=== PATIENT | female | born 1995 | race Caucasian/White ===

== ENCOUNTER 2020-04-19 07:30 | Outpatient (REF) | payer OTHER, SELFPAY ==
[2020-04-19 08:21] LABS: COVID-19 Test Negative (Negative); IDNOW Serial# 55D5AD1C
== END 2020-04-19 07:31 | disposition home or self-care (01) ==
LOC: HO.EMPCOV 07:30
PROVIDERS: Visit Provider Internal Medicine
DX: Z20.828 Contact with and (suspected) exposure to other viral communicable diseases (principal)
CPT/HCPCS: 87635; C9803

== ENCOUNTER 2020-09-14 13:55 | Emergency (ER) | payer OTHER, SELFPAY ==
--- NOTE | ~2020-09-14 | CT_ITS ---
EXAMINATION: CT ABDOMEN AND PELVIS WITH CONTRAST CLINICAL INFORMATION: Right lower quadrant pain x3 weeks COMPARISON: None TECHNIQUE: Multidetector volumetric images were obtained from the superior aspect of the liver through the pubic symphysis following administration 85 mL of Omnipaque 350 intravenous contrast. Sagittal and coronal reformatted images were obtained on the technologist's workstation. Oral contrast: No This CT examination was performed using dose optimization techniques as appropriate, variously including the following: *Automated exposure control *Adjustment of mA and/or kV according to patient size (this includes techniques or standardized protocols for targeted exams where dose is matched to indication/reason for exam; i.e. extremities or head) *Use of iterative reconstruction technique DLP: 341 mGy-cm FINDINGS: LUNG BASES: The visualized lung bases are unremarkable. LIVER, GALLBLADDER, AND BILIARY TREE: The liver is mildly enlarged measuring about 19 cm in greatest cephalocaudad dimension and demonstrates some decreased attenuation suggesting hepatic steatosis. No focal hepatic lesion or biliary ductal dilatation is present. The gallbladder is unremarkable with no evidence of radiopaque gallstones, gallbladder wall thickening, or obvious pericholecystic inflammatory changes. PANCREAS: Unremarkable. SPLEEN: Unremarkable. ADRENAL GLANDS: Unremarkable. KIDNEYS AND URETERS: The kidneys are normal in size, shape, and attenuation. No hydronephrosis, hydroureter, or calculi seen. No perinephric stranding. BLADDER: Unremarkable. GASTROINTESTINAL TRACT: A small hiatal hernia is present. The small and large bowel are unremarkable. There is a tiny punctate nonobstructing appendicolith present in the proximal appendix but distally the appendix contains air and there is no evidence of appendicitis (see dunlap images).. ABDOMINAL WALL: No significant hernia is appreciated. LYMPH NODES: Multiple small nodes present in the periceliac region VASCULAR: Unremarkable. PELVIC VISCERA: An anteverted uterus is present. An abnormal adnexal mass is not seen. No free intraperitoneal fluid is present. Bilateral ovarian cysts are present. OSSEOUS STRUCTURES: Unremarkable. CT/CT abdomen pelvis w con IMPRESSION: There is an appendicolith in the proximal appendix but the appendix distal to this appears normal containing air and no inflammatory changes. Perhaps this could produce intermittent obstruction? Incidental note made of a small hiatal hernia, small bilateral ovarian cysts and a mildly enlarged fatty liver.
[2020-09-14 14:24] VITALS: BP 117/84; PULSE 90; RESP 16; TEMP 37.2; O2SAT 98; BMI 19.1
[2020-09-14 17:17] LABS: MANUAL DIFF FLAG NO
[2020-09-14 17:20] LABS: Basophils Percent Auto 0.2 % (0-2); Eosinophils Absolute Auto 0.1 X10*3/uL (0.0-0.4); Hematocrit 36.8 % (37-47); Imm Gran Abs Auto 0.01 X10*3/uL (0.00-0.03); Imm Gran Pct Auto 0.2 % (0.0-0.4); Lymphocytes Percent Auto 39.4 % (20-40); Mean Corpuscular HGB Conc 32.6 g/dl (31.0-35.0); Mean Corpuscular Hemoglobin 28.3 pg (27.0-33.0); Mean Corpuscular Volume 86.8 fL (80-98); Mean Platelet Volume 9.8 fL (9.4-12.3); Monocytes Absolute Auto 0.4 X10*3/uL (0.1-1.2); Monocytes Percent Auto 7.9 % (2-11); Neutrophils Absolute Auto 2.5 X10*3/uL (2.0-8.3); Neutrophils Percent Auto 51.3 % (45-73); Platelet Count 231 X10*3/uL (160-400); Red Blood Count 4.24 X10*6/uL (4.20-5.50); Red Cell Distribution Width 12.2 % (11.0-16.0)
[2020-09-14 17:45] LABS: Anion Gap 12 (12-20); Blood Urea Nitrogen 12 mg/dL (9-16); Calcium 9.2 mg/dL (8.4-10.2); Carbon Dioxide 24 mmol/L (22-29); Chloride 107 mmol/L (96-108); Creatinine Clr Calc Pharmacy 102.3; Estimated Glomerular Filt Rate > 60; Glucose Random 81 mg/dL (60-115); Potassium 4.3 mmol/L (3.3-5.1); Sodium 139 mmol/L (135-145)
[2020-09-14 20:57] VITALS: BP 110/62; PULSE 78; RESP 14; O2SAT 99
--- NOTE | 2020-09-14 21:10 | ED_ITS ---
HPI - Abdominal Pain General Chief Complaint: Abdominal Pain Stated Complaint: ABD PAIN Time Seen by Provider: 09/14/20 20:03 Source: patient Mode of arrival: ambulatory Limitations: no limitations History of Present Illness HPI narrative: Patient comes emergency room complaining of abdominal pain. Patient states it has been present for 2-3 weeks. Patient states it is epigastric, at times right lower quadrant. Patient states that she went to a walk-in clinic today, when they did the abdominal exam she started having worsening right lower quadrant pain and she was sent to the emergency room. Patient also reports that for the last 3 weeks she has had metallic taste in her mouth, states that her stool smells like a GI bleed Related Data Home Medications Medication Instructions Recorded Confirmed dextroamphetamine-amphetamine ER 1 cap PO [facility] 09/14/20 15 mg 24hr capsule,extend release escitalopram oxalate 10 mg tablet 10 mg PO [facility] 09/14/20 Allergies Allergy/AdvReac Type Severity Reaction Status Date / Time No Known Allergies Allergy Verified 09/14/20 12:41 Review of Systems Review of Systems Constitutional : No Weight loss, No Fever, No Chills, No Night Sweats, No Fatigue, No Malaise ENT/Mouth : No Hearing loss, No Ear Pain, No Nasal Congestion, No Sinus Pain, No Hoarseness, No sore throat, No Rhinorrhea, No Swallowing Difficulty, complaining of metallic taste Eyes: No Eye Pain, No Swelling, No Redness, No Foreign Body, No Discharge, No Vision Changes Cardiovascular : No Chest Pain, No SOB, No Dyspnea on Exertion, No Orthopnea, No Edema, No Palpitations Respiratory : No Cough, No Sputum, No Wheezing, No Smoke Exposure, No Dyspnea Gastrointestinal : No Nausea, No Vomiting, No Diarrhea, No Constipation, compl aining of periumbilical and right lower quadrant pain, No Hematochezia, No Melena, complaining of bowel movements Milling like GI bleed Genitourinary : no irregular bleeding, No Dysuria, No Urinary Frequency, No Hematuria, No Urinary Incontinence, No Urgency, No Flank Pain, No Urinary Flow Changes, No Hesitancy Musculoskeletal : No joint pain, No Myalgias, No Joint Swelling Skin : No Skin Lesions, No rash Neuro : No Weakness, No Numbness, No Paresthesias, No Loss of Consciousness, No Dizziness, No Headache Psych : No Anxiety/Panic, No Depression, No SI/HI/AH/VH, No Social Issues, Heme/Lymph: No Bruising, No Bleeding,No Lymphadenopathy Endocrine : No Polyuria, No Polydipsia, No Temperature Intolerance Physical Exam Vital Signs: Vital Signs: Last Vital Signs Temp 99 F 09/14/20 14:24 Pulse 78 09/14/20 20:57 Resp 14 09/14/20 20:57 BP 110/62 09/14/20 20:57 Pulse Ox 99 09/14/20 20:57 Body Mass Index 19.1 Appearance: Alert. Oriented X3. No acute distress. Eyes: Pupils equal, round and reactive to light. ENT: Pharynx normal. Neck: Normal inspection. Neck supple. No lymph nodes noted. No crepitus CVS: Normal heart rate and rhythm. Pulses normal. Normal S1 and S2 Respiratory: No respiratory distress. Breath sounds normal. No Wheezing. No rales Abdomen: Soft , mild to moderate tenderness to palpation on the right lower quadrant and periumbilical area, No rigidity. No distention. ROSALBA negative Skin: Skin warm and dry. Normal skin color. Normal skin turgor. Extremities: No lower extremity edema. No lower extremity edema. No Lacerations. No Rash Neuro: Oriented X 3. No motor deficit. No sensory deficit. Moving all extermities. No slurred speech. Course Course Course Narrative: Patient has minimal abdominal pain, only hurts when pressed over the periumbilical and right lower quadrant. Patient declined multiple times pain medication. I discussed the labs and CT scan with Dr. Jimenez, at this time the CT is benign looking, unlikely that the patient will develop appendicitis. However, I discussed with the patient that her symptoms may be an early sign of appendicitis and if she has any worsening or new symptoms, she needs to return to the emergency room. Patient agrees with plan MDM - Abdominal Pain Lab Data Result diagrams: 09/14/20 23:17 09/14/20 23:17 Labs: Lab Results 09/14/20 09/14/20 09/14/20 Range/Units 16:47 16:48 22:14 WBC 5.0 (4.8-10.8) X10*3/uL RBC 4.24 (4.20-5.50) X10*6/uL Hgb 12.0 (12.0-16.0) g/dl Hct 36.8 L (37-47) % MCV 86.8 (80-98) fL MCH 28.3 (27.0-33.0) pg MCHC 32.6 (31.0-35.0) g/dl RDW 12.2 (11.0-16.0) % Plt Count 231 (160-400) X10*3/uL MPV 9.8 (9.4-12.3) fL Immature Gran % (Auto) 0.2 (0.0-0.4) % Neut % (Auto) 51.3 (45-73) % Lymph % (Auto) 39.4 (20-40) % Gosper % (Auto) 7.9 (2-11) % Eos % (Auto) 1.0 (0-4) % Baso % (Auto) 0.2 (0-2) % Lymph # (Auto) 2.0 (1.2-4.9) X10*3/uL Gosper # (Auto) 0.4 (0.1-1.2) X10*3/uL Eos # (Auto) 0.1 (0.0-0.4) X10*3/uL Baso # (Auto) 0.0 (0.0-0.2) X10*3/uL Abs Immat Gran (auto) 0.01 (0.00-0.03) X10*3/uL Absolute Neuts (auto) 2.5 (2.0-8.3) X10*3/uL Absolute Nucleated RBC 0.000 (0.0-0.012) X10*3/uL Nucleated RBC % (auto) 0.0 (0.0-0.2) /100WBC PT (10.8-13.0) SEC INR (0.9-1.1) APTT (24.1-38.0) SEC Sodium 139 (135-145) mmol/L Potassium 4.3 (3.3-5.1) mmol/L Chloride 107 (96-108) mmol/L Carbon Dioxide 24 (22-29) mmol/L Anion Gap 12 (12-20) BUN 12 (9-16) mg/dL Creatinine 0.68 (0.5-1.4) mg/dL Estim Creat Clear Calc 102.3 Estimated GFR > 60 Random Glucose 81 (60-115) mg/dL Calcium 9.2 (8.4-10.2) mg/dL Total Bilirubin (0.0-1.0) mg/dL Direct Bilirubin (0.0-0.5) mg/dL AST (5-31) U/L ALT (0-31) U/L Alkaline Phosphatase (39-117) U/L Total Protein (6.5-8.0) g/dL Albumin (3.5-5.0) g/dL Lipase (8-78) U/L Urine Color Urine Appearance Urine pH (5.0-8.0) Ur Specific Billings (1.005-1.025) Urine Protein (NEG-TRACE) MG/DL Urine Glucose (UA) (NEG) MG/DL Urine Ketones (NEG) MG/DL Urine Blood (NEG) Urine Nitrite (NEG) Ur Leukocyte Esterase (NEG) Urine Test (NEGATIVE) Stool Occult Blood (NEGATIVE) Coronavirus (PCR) NEGATIVE (Negative) Influenza Type A (PCR) NEGATIVE (Negative) Influenza Type B (PCR) NEGATIVE (Negative) RSV RNA Qual (PCR) NEGATIVE (Negative) 09/14/20 09/14/20 09/14/20 Range/Units 22:14 22:14 23:17 WBC 5.0 (4.8-10.8) X10*3/uL RBC 4.38 (4.20-5.50) X10*6/uL Hgb 12.4 (12.0-16.0) g/dl Hct 37.6 (37-47) % MCV 85.8 (80-98) fL MCH 28.3 (27.0-33.0) pg MCHC 33.0 (31.0-35.0) g/dl RDW 12.0 (11.0-16.0) % Plt Count 212 (160-400) X10*3/uL MPV 9.4 (9.4-12.3) fL Immature Gran % (Auto) 0.2 (0.0-0.4) % Neut % (Auto) 43.8 L (45-73) % Lymph % (Auto) 45.1 H (20-40) % Gosper % (Auto) 9.1 (2-11) % Eos % (Auto) 1.6 (0-4) % Baso % (Auto) 0.2 (0-2) % Lymph # (Auto) 2.2 (1.2-4.9) X10*3/uL Gosper # (Auto) 0.5 (0.1-1.2) X10*3/uL Eos # (Auto) 0.1 (0.0-0.4) X10*3/uL Baso # (Auto) 0.0 (0.0-0.2) X10*3/uL Abs Immat Gran (auto) 0.01 (0.00-0.03) X10*3/uL Absolute Neuts (auto) 2.2 (2.0-8.3) X10*3/uL Absolute Nucleated RBC 0.000 (0.0-0.012) X10*3/uL Nucleated RBC % (auto) 0.0 (0.0-0.2) /100WBC PT (10.8-13.0) SEC INR (0.9-1.1) APTT (24.1-38.0) SEC Sodium (135-145) mmol/L Potassium (3.3-5.1) mmol/L Chloride (96-108) mmol/L Carbon Dioxide (22-29) mmol/L Anion Gap (12-20) BUN (9-16) mg/dL Creatinine (0.5-1.4) mg/dL Estim Creat Clear Calc Estimated GFR Random Glucose (60-115) mg/dL Calcium (8.4-10.2) mg/dL Total Bilirubin (0.0-1.0) mg/dL Direct Bilirubin (0.0-0.5) mg/dL AST (5-31) U/L ALT (0-31) U/L Alkaline Phosphatase (39-117) U/L Total Protein (6.5-8.0) g/dL Albumin (3.5-5.0) g/dL Lipase (8-78) U/L Urine Color YELLOW Urine Appearance CLEAR Urine pH 5.5 (5.0-8.0) Ur Specific Billings 1.020 (1.005-1.025) Urine Protein NEG (NEG-TRACE) MG/DL Urine Glucose (UA) NEG (NEG) MG/DL Urine Ketones NEG (NEG) MG/DL Urine Blood NEG (NEG) Urine Nitrite NEG (NEG) Ur Leukocyte Esterase NEG (NEG) Urine Test NEGATIVE (NEGATIVE) Stool Occult Blood (NEGATIVE) Coronavirus (PCR) (Negative) Influenza Type A (PCR) (Negative) Influenza Type B (PCR) (Negative) RSV RNA Qual (PCR) (Negative) 09/14/20 09/14/20 09/14/20 Range/Units 23:17 23:17 23:17 WBC (4.8-10.8) X10*3/uL RBC (4.20-5.50) X10*6/uL Hgb (12.0-16.0) g/dl Hct (37-47) % MCV (80-98) fL MCH (27.0-33.0) pg MCHC (31.0-35.0) g/dl RDW (11.0-16.0) % Plt Count (160-400) X10*3/uL MPV (9.4-12.3) fL Immature Gran % (Auto) (0.0-0.4) % Neut % (Auto) (45-73) % Lymph % (Auto) (20-40) % Gosper % (Auto) (2-11) % Eos % (Auto) (0-4) % Baso % (Auto) (0-2) % Lymph # (Auto) (1.2-4.9) X10*3/uL Gosper # (Auto) (0.1-1.2) X10*3/uL Eos # (Auto) (0.0-0.4) X10*3/uL Baso # (Auto) (0.0-0.2) X10*3/uL Abs Immat Gran (auto) (0.00-0.03) X10*3/uL Absolute Neuts (auto) (2.0-8.3) X10*3/uL Absolute Nucleated RBC (0.0-0.012) X10*3/uL Nucleated RBC % (auto) (0.0-0.2) /100WBC PT 13.2 H (10.8-13.0) SEC INR 1.1 (0.9-1.1) APTT 31.9 (24.1-38.0) SEC Sodium 140 (135-145) mmol/L Potassium 3.9 (3.3-5.1) mmol/L Chloride 106 (96-108) mmol/L Carbon Dioxide 25 (22-29) mmol/L Anion Gap 13 (12-20) BUN 10 (9-16) mg/dL Creatinine 0.67 (0.5-1.4) mg/dL Estim Creat Clear Calc 103.8 Estimated GFR > 60 Random Glucose 80 (60-115) mg/dL Calcium 9.2 9.5 (8.4-10.2) mg/dL Total Bilirubin 0.6 (0.0-1.0) mg/dL Direct Bilirubin 0.2 (0.0-0.5) mg/dL AST 13 (5-31) U/L ALT 11 (0-31) U/L Alkaline Phosphatase 45 (39-117) U/L Total Protein 7.2 (6.5-8.0) g/dL Albumin 4.7 (3.5-5.0) g/dL Lipase 43 (8-78) U/L Urine Color Urine Appearance Urine pH (5.0-8.0) Ur Specific Billings (1.005-1.025) Urine Protein (NEG-TRACE) MG/DL Urine Glucose (UA) (NEG) MG/DL Urine Ketones (NEG) MG/DL Urine Blood (NEG) Urine Nitrite (NEG) Ur Leukocyte Esterase (NEG) Urine Test (NEGATIVE) Stool Occult Blood (NEGATIVE) Coronavirus (PCR) (Negative) Influenza Type A (PCR) (Negative) Influenza Type B (PCR) (Negative) RSV RNA Qual (PCR) (Negative) 09/15/20 Range/Units 02:04 WBC (4.8-10.8) X10*3/uL RBC (4.20-5.50) X10*6/uL Hgb (12.0-16.0) g/dl Hct (37-47) % MCV (80-98) fL MCH (27.0-33.0) pg MCHC (31.0-35.0) g/dl RDW (11.0-16.0) % Plt Count (160-400) X10*3/uL MPV (9.4-12.3) fL Immature Gran % (Auto) (0.0-0.4) % Neut % (Auto) (45-73) % Lymph % (Auto) (20-40) % Gosper % (Auto) (2-11) % Eos % (Auto) (0-4) % Baso % (Auto) (0-2) % Lymph # (Auto) (1.2-4.9) X10*3/uL Gosper # (Auto) (0.1-1.2) X10*3/uL Eos # (Auto) (0.0-0.4) X10*3/uL Baso # (Auto) (0.0-0.2) X10*3/uL Abs Immat Gran (auto) (0.00-0.03) X10*3/uL Absolute Neuts (auto) (2.0-8.3) X10*3/uL Absolute Nucleated RBC (0.0-0.012) X10*3/uL Nucleated RBC % (auto) (0.0-0.2) /100WBC PT (10.8-13.0) SEC INR (0.9-1.1) APTT (24.1-38.0) SEC Sodium (135-145) mmol/L Potassium (3.3-5.1) mmol/L Chloride (96-108) mmol/L Carbon Dioxide (22-29) mmol/L Anion Gap (12-20) BUN (9-16) mg/dL Creatinine (0.5-1.4) mg/dL Estim Creat Clear Calc Estimated GFR Random Glucose (60-115) mg/dL Calcium (8.4-10.2) mg/dL Total Bilirubin (0.0-1.0) mg/dL Direct Bilirubin (0.0-0.5) mg/dL AST (5-31) U/L ALT (0-31) U/L Alkaline Phosphatase (39-117) U/L Total Protein (6.5-8.0) g/dL Albumin (3.5-5.0) g/dL Lipase (8-78) U/L Urine Color Urine Appearance Urine pH (5.0-8.0) Ur Specific Billings (1.005-1.025) Urine Protein (NEG-TRACE) MG/DL Urine Glucose (UA) (NEG) MG/DL Urine Ketones (NEG) MG/DL Urine Blood (NEG) Urine Nitrite (NEG) Ur Leukocyte Esterase (NEG) Urine Test (NEGATIVE) Stool Occult Blood NEGATIVE (NEGATIVE) Coronavirus (PCR) (Negative) Influenza Type A (PCR) (Negative) Influenza Type B (PCR) (Negative) RSV RNA Qual (PCR) (Negative) Imaging Data CT scan - abdomen: Radiologist's impression: LUNG BASES: The visualized lung bases are unremarkable. LIVER, GALLBLADDER, AND BILIARY TREE: The liver is mildly enlarged measuring about 19 cm in greatest cephalocaudad dimension and demonstrates some decreased attenuation suggesting hepatic steatosis. No focal hepatic lesion or biliary ductal dilatation is present. The gallbladder is unremarkable with no evidence of radiopaque gallstones, gallbladder wall thickening, or obvious pericholecystic inflammatory changes. PANCREAS: Unremarkable. SPLEEN: Unremarkable. ADRENAL GLANDS: Unremarkable. KIDNEYS AND URETERS: The kidneys are normal in size, shape, and attenuation. No hydronephrosis, hydroureter, or calculi seen. No perinephric stranding. BLADDER: Unremarkable. GASTROINTESTINAL TRACT: A small hiatal hernia is present. The small and large bowel are unremarkable. There is a tiny punctate nonobstructing appendicolith present in the proximal appendix but distally the appendix contains air and there is no evidence of appendicitis (see dunlap images).. ABDOMINAL WALL: No significant hernia is appreciated. LYMPH NODES: Multiple small nodes present in the periceliac region VASCULAR: Unremarkable. PELVIC VISCERA: An anteverted uterus is present. An abnormal adnexal mass is not seen. No free intraperitoneal fluid is present. Bilateral ovarian cysts are present. OSSEOUS STRUCTURES: Unremarkable. CT/CT abdomen pelvis w con IMPRESSION: There is an appendicolith in the proximal appendix but the appendix distal to this appears normal containing air and no inflammatory changes. Perhaps this could produce intermittent obstruction? Incidental note made of a small hiatal hernia, small bilateral ovarian cysts and a mildly enlarged fatty liver. Discharge Plan Discharge Clinical Impression: Abdominal pain Qualifiers: Abdominal location: right lower quadrant Qualified Code(s): R10.31 - Right lower quadrant pain Patient Disposition: Home, Self-Care Instructions: Abdominal Pain (ED) Additional Instructions: If you have any ongoing or worsening abdominal pain or if you have any new symptoms, please return to the emergency room. At this time, acute appendicitis has not been ruled out, your symptoms could be indicative of early appendicitis. Please follow-up with your primary care physician tomorrow. If you have any worsening or new symptoms, please return to the emergency room or call 911 Prescriptions: No Action dextroamphetamine-amphetamine 15 mg capsule,extended release 24hr 1 cap PO QAM RF: 0 escitalopram oxalate 10 mg tablet 10 mg PO QAM RF: 0 PMFSH Past Medical History Medical History Asthma Social History Social History Advance Directives: No
[2020-09-14 22:23] LABS: Glucose Urine UA NEG (NEG); Leukocyte Esterase Urine NEG (NEG); Nitrite Urine NEG (NEG); PH 5.5 (5.0-8.0); Urine Blood NEG (NEG); Urine Ketones NEG (NEG); Urine Protein NEG (NEG-TRACE)
[2020-09-14 22:25] LABS: Appearance Urine CLEAR; Color Urine YELLOW; UPreg QC Valid YES; Urine Pregnancy NEGATIVE (NEGATIVE)
[2020-09-14 23:18] LABS: MANUAL DIFF FLAG NO
[2020-09-14 23:19] LABS: Basophils Percent Auto 0.2 % (0-2); Eosinophils Absolute Auto 0.1 X10*3/uL (0.0-0.4); Eosinophils Percent Auto 1.6 % (0-4); Hematocrit 37.6 % (37-47); Hemoglobin 12.4 g/dl (12.0-16.0); Imm Gran Abs Auto 0.01 X10*3/uL (0.00-0.03); Imm Gran Pct Auto 0.2 % (0.0-0.4); Lymphocytes Absolute Auto 2.2 X10*3/uL (1.2-4.9); Lymphocytes Percent Auto 45.1 % (20-40); Mean Corpuscular Hemoglobin 28.3 pg (27.0-33.0); Mean Corpuscular Volume 85.8 fL (80-98); Mean Platelet Volume 9.4 fL (9.4-12.3); Monocytes Absolute Auto 0.5 X10*3/uL (0.1-1.2); Monocytes Percent Auto 9.1 % (2-11); Neutrophils Absolute Auto 2.2 X10*3/uL (2.0-8.3); Neutrophils Percent Auto 43.8 % (45-73); Platelet Count 212 X10*3/uL (160-400); Red Blood Count 4.38 X10*6/uL (4.20-5.50)
--- NOTE | 2020-09-14 23:24 | PC.NURSE ---
pt covid rsv swab was collected and lables printed but the barcode would not appear to scan. this rn name date and time placed on the lable and lab called and verified it was scanned at [id number]
[2020-09-14 23:30] LABS: INTERNATIONAL NORM RATIO 1.1 (0.9-1.1); Prothrombin Time 13.2 SEC (10.8-13.0)
[2020-09-14 23:32] LABS: Partial Thromboplastin Time 31.9 SEC (24.1-38.0)
[2020-09-14 23:46] LABS: Calcium 9.5 mg/dL (8.4-10.2)
[2020-09-14 23:53] LABS: Alanine Aminotransferase 11 U/L (0-31); Albumin Level 4.7 g/dL (3.5-5.0); Alkaline Phosphatase 45 U/L (39-117); Anion Gap 13 (12-20); Aspartate Amino Transferase 13 U/L (5-31); Bilirubin Direct 0.2 mg/dL (0.0-0.5); Bilirubin Total 0.6 mg/dL (0.0-1.0); Blood Urea Nitrogen 10 mg/dL (9-16); Calcium 9.2 mg/dL (8.4-10.2); Carbon Dioxide 25 mmol/L (22-29); Chloride 106 mmol/L (96-108); Creatinine Clr Calc Pharmacy 103.8; Estimated Glomerular Filt Rate > 60; Glucose Random 80 mg/dL (60-115); Lipase 43 U/L (8-78); Potassium 3.9 mmol/L (3.3-5.1); Sodium 140 mmol/L (135-145); Total Protein 7.2 g/dL (6.5-8.0)
[2020-09-14] MEDS: iohexoL 350 MG/ML 100 ML INFUS..BTL 85 ML IV (23:55)
[2020-09-15 00:08] LABS: Influenza A PCR NEGATIVE (Negative); Influenza B PCR NEGATIVE (Negative); Resp Syncy Virus RNA Qual PCR NEGATIVE (Negative); SARS COV2 PCR INHOUSE NEGATIVE (Negative)
[2020-09-15 02:11] LABS: OBS Int Ctl Valid YES; OBS1 NEGATIVE (NEGATIVE)
[2020-09-15] MEDS: Acetaminophen 325 MG TABLET 650 MG PO (02:30)
[2020-09-15 02:32] VITALS: BP 112/70; PULSE 72; RESP 16; O2SAT 99
== END 2020-09-15 02:53 | disposition home or self-care (01) ==
PROVIDERS: Emergency Provider Emergency Medicine
DX: R10.31 Right lower quadrant pain (principal); Z20.822 Contact with and (suspected) exposure to COVID-19; R93.5 Abnormal findings on diagnostic imaging of other abdominal regions, including retroperitoneum; K44.9 Diaphragmatic hernia without obstruction or gangrene; N83.202 Unspecified ovarian cyst, left side; N83.201 Unspecified ovarian cyst, right side; K76.0 Fatty (change of) liver, not elsewhere classified
CPT/HCPCS: 0241U; 36415; 74177; 80048; 80076; 81003; 81025; 82272; 82310; 83690; 85025; 85610; 85730; 99284; Q9967

== ENCOUNTER 2020-09-17 01:28 | Emergency (ER) | payer OTHER, SELFPAY ==
--- NOTE | ~2020-09-17 | US_ITS ---
EXAMINATIONS: ULTRASOUND PELVIC, COMPLETE AND DOPPLER INTERROGATION CLINICAL INFORMATION: Pain. COMPARISON: Same day abdominal and pelvic CT. TECHNIQUE: Transabdominal and transvaginal imaging was performed. Transvaginal imaging was performed for further evaluation of the endometrium and adnexa. Doppler interrogation spectral analysis was performed. FINDINGS: The uterus is of normal size and echogenicity measuring 5.8 x 2.5 x 4.1 cm. A regular homogeneous endometrium is identified measuring 0.6 cm. Both ovaries are of normal size and echogenicity. Numerous ovarian follicles are present bilaterally. The right measures 3.3 x 2.5 x 2.4 cm for a volume of 10.4 cc. The left measures 3.2 x 2.0 x 2.4 cm for a volume of 8.0 cc. Normal arterial and venous blood flow is present bilaterally. There is trace likely physiologic pelvic free fluid. US/US pelvic ovarian doppler IMPRESSION: No evidence for ovarian torsion. Unremarkable pelvic ultrasound.
--- NOTE | ~2020-09-17 | US_ITS ---
EXAMINATIONS: ULTRASOUND PELVIC, COMPLETE AND DOPPLER INTERROGATION CLINICAL INFORMATION: Pain. COMPARISON: Same day abdominal and pelvic CT. TECHNIQUE: Transabdominal and transvaginal imaging was performed. Transvaginal imaging was performed for further evaluation of the endometrium and adnexa. Doppler interrogation spectral analysis was performed. FINDINGS: The uterus is of normal size and echogenicity measuring 5.8 x 2.5 x 4.1 cm. A regular homogeneous endometrium is identified measuring 0.6 cm. Both ovaries are of normal size and echogenicity. Numerous ovarian follicles are present bilaterally. The right measures 3.3 x 2.5 x 2.4 cm for a volume of 10.4 cc. The left measures 3.2 x 2.0 x 2.4 cm for a volume of 8.0 cc. Normal arterial and venous blood flow is present bilaterally. There is trace likely physiologic pelvic free fluid. US/US pelvic and transvaginal IMPRESSION: No evidence for ovarian torsion. Unremarkable pelvic ultrasound.
--- NOTE | ~2020-09-17 | CT_ITS ---
EXAMINATION: CT ABDOMEN AND PELVIS WITH CONTRAST CLINICAL INFORMATION: Right lower quadrant pain. COMPARISON: 09/14/2020. TECHNIQUE: Contiguous axial thin section helical images of the abdomen and pelvis were performed following the administration of 85 mL of intravenous Omnipaque 3-50. The data set was reformatted in the coronal and sagittal planes and reviewed on an independent workstation. DLP: 308 mGy-cm. FINDINGS: The visualized lung bases are clear. The visualized portions of the heart are unremarkable. The liver is of normal size and attenuation without focal lesions nor intrahepatic biliary ductal dilation. A normal gallbladder is identified. There is no wall thickening or discernible pericholecystic fluid. The spleen, pancreas, adrenal glands are unremarkable. Both kidneys are of normal size and attenuation without hydronephrosis or nephrolithiasis. Following the administration of IV contrast, prompt symmetric nephrograms are displayed. There is no abdominal free fluid. There is neither mesenteric nor retroperitoneal lymphadenopathy. There is equivocal fat stranding noted about the ascending colon without significant wall thickening. Otherwise, unremarkable unopacified loops of small and large bowel are identified. A normal appendix is identified. There is no pelvic free fluid. The urinary bladder is unremarkable. There is neither pelvic nor inguinal lymphadenopathy. Bone windows: Neither sclerotic nor lytic bone lesions are identified. CT/CT abdomen pelvis w con IMPRESSION: Normal appendix identified. Equivocal fat stranding noted about the ascending colon without wall thickening. The appearance is nonspecific, though consider mild manifestations of colitis. Automated exposure control (Care Dose) Adjustment of the mA and/or kv according to patient size (this includes techniques or standardized protocols for targeted exams where dose is matched to indication / reason for exam; i.e. extremities or head).
--- NOTE | 2020-09-17 01:37 | ED_ITS ---
HPI - General Adult General Chief complaint: Abdominal Pain Stated complaint: Abdominal Pain Time Seen by Provider: 09/17/20 01:31 Source: patient Mode of arrival: ambulatory Limitations: no limitations History of Present Illness HPI narrative: Patient comes to emergency room complaining of abdominal pain. Patient on September 14, came in complaining of right lower quadrant pain. During her ER stay on the last visit, patient stated that the pain was not strong enough and declined pain medication. Also, her CT scan showed an appendicolith, the CT scan and her lab results were discussed with Dr. Jimenez, recommendations were to discharge patient home. Patient was made aware that she could have early signs of appendicitis and to return if she had any new symptoms or if the pain worsened. Patient states that after she left the hospital, she was feeling well for several hours. Then, she started having sharp pain, intermittent for the last couple of days. Patient states that today she was feeling relatively well, came to work, and around 19:00 she started having nausea and sharp right lower quadrant pain. Patient denies fever chills, no vomiting or diarrhea, denies vaginal discharge, last menstrual period 1 year ago (on [employer]). Patient states that the pain is much worse when she moves Related Data Home Medications Medication Instructions Recorded Confirmed dextroamphetamine-amphetamine ER 1 cap PO QAM 09/14/20 15 mg 24hr capsule,extend release escitalopram oxalate 10 mg tablet 10 mg PO QAM 09/14/20 Allergies Allergy/AdvReac Type Severity Reaction Status Date / Time No Known Allergies Allergy Verified 09/14/20 12:41 Review of Systems Review of Systems: Constitutional : No Weight loss, No Fever, No Chills, No Night Sweats, No Fatigue, No Malaise ENT/Mouth : No Hearing loss, No Ear Pain, No Nasal Congestion, No Sinus Pain, No Hoarseness, No sore throat, No Rhinorrhea, No Swallowing Difficulty Eyes: No Eye Pain, No Swelling, No Redness, No Foreign Body, No Discharge, No Vision Changes Cardiovascular : No Chest Pain, No SOB, No Dyspnea on Exertion, No Orthopnea, No Edema, No Palpitations Respiratory : No Cough, No Sputum, No Wheezing, No Smoke Exposure, No Dyspnea Gastrointestinal : Complaining of Nausea, No Vomiting, No Diarrhea, No Constipation, complaining of right lower quadrant pain, No Hematochezia, No Melena Genitourinary : no irregular bleeding, No Dysuria, No Urinary Frequency, No Hematuria, No Urinary Incontinence, No Urgency, No Flank Pain, No Urinary Flow Changes, No Hesitancy Musculoskeletal : No joint pain, No Myalgias, No Joint Swelling Skin : No Skin Lesions, No rash Neuro : No Weakness, No Numbness, No Paresthesias, No Loss of Consciousness, No Dizziness, No Headache Psych : No Anxiety/Panic, No Depression, No SI/HI/AH/VH, No Social Issues, Heme/Lymph: No Bruising, No Bleeding,No Lymphadenopathy Endocrine : No Polyuria, No Polydipsia, No Temperature Intolerance [facility] Past Medical History Medical History Asthma Social History Social History Alcohol intake: never Smoking Status: Never smoker Use of substances other than those prescribed or required for medical reasons: No Advance Directives: No Advance Directives Information Provided: No Physical Exam Vital Signs: Vital Signs: Last Vital Signs Temp 98.2 F 09/17/20 01:44 Pulse 75 09/17/20 06:27 Resp 16 09/17/20 06:27 BP 101/68 09/17/20 06:27 Pulse Ox 100 09/17/20 01:44 Body Mass Index 19.1 Appearance: Alert. Oriented X3. No acute distress. Eyes: Pupils equal, round and reactive to light. ENT: Pharynx normal. Neck: Normal inspection. Neck supple. No lymph nodes noted. No crepitus CVS: Normal heart rate and rhythm. Pulses normal. Normal S1 and S2 Respiratory: No respiratory distress. Breath sounds normal. No Wheezing. No ral es Abdomen: Soft, complaining of right lower quadrant pain on deep palpation, No rigidity. No distention. good BS x4 : Cervix within normal limits, no significant discharge. Negative cervical motion tenderness, no adnexal tenderness Skin: Skin warm and dry. Normal skin color. Normal skin turgor. Extremities: No lower extremity edema. No lower extremity edema. No Lacerations. No Rash Neuro: Oriented X 3. No motor deficit. No sensory deficit. Moving all extermities. No slurred speech. Course Course Course Narrative: I discussed the labs and imaging with Dr. Stover, at this time she does not think that patient has appendicitis, recommendations are to call OBGYN for consult I discussed the patient in the imaging with Dr. Hyman, who reviewed the patient's records, given the patient's physical exam ultrasound findings and labs, at this time pelvic inflammatory disease is not suspected or pain related to an OBGYN condition. Recommendations per Dr. Hyman are to offer to the patient empiric treatment, although her physical exam and imaging/labs are inconsistent with PID, STD panel pending. Patient decided to not get antibiotics at this time. Patient instructed to follow-up with her primary care physician or return to the emergency room if she has any ongoing abdominal pain. Patient's pain may be musculoskeletal given that it is worse with movement. Medical Decision Making Lab Data Result diagrams: 09/17/20 01:51 09/17/20 01:51 Labs: Lab Results 09/17/20 09/17/20 09/17/20 Range/Units 01:51 01:51 03:17 WBC 4.8 (4.8-10.8) X10*3/uL RBC 4.41 (4.20-5.50) X10*6/uL Hgb 12.5 (12.0-16.0) g/dl Hct 37.8 (37-47) % MCV 85.7 (80-98) fL MCH 28.3 (27.0-33.0) pg MCHC 33.1 (31.0-35.0) g/dl RDW 12.1 (11.0-16.0) % Plt Count 244 (160-400) X10*3/uL MPV 9.9 (9.4-12.3) fL Immature Gran % (Auto) 0.2 (0.0-0.4) % Neut % (Auto) 41.1 L (45-73) % Lymph % (Auto) 47.0 H (20-40) % [place] % (Auto) 10.0 (2-11) % Eos % (Auto) 1.5 (0-4) % Baso % (Auto) 0.2 (0-2) % Lymph # (Auto) 2.3 (1.2-4.9) X10*3/uL [place] # (Auto) 0.5 (0.1-1.2) X10*3/uL Eos # (Auto) 0.1 (0.0-0.4) X10*3/uL Baso # (Auto) 0.0 (0.0-0.2) X10*3/uL Abs Immat Gran (auto) 0.01 (0.00-0.03) X10*3/uL Absolute Neuts (auto) 2.0 (2.0-8.3) X10*3/uL Absolute Nucleated RBC 0.000 (0.0-0.012) X10*3/uL Nucleated RBC % (auto) 0.0 (0.0-0.2) /100WBC Sodium 140 (135-145) mmol/L Potassium 3.9 (3.3-5.1) mmol/L Chloride 106 (96-108) mmol/L Carbon Dioxide 22 (22-29) mmol/L Anion Gap 16 (12-20) BUN 14 (9-16) mg/dL Creatinine 0.77 (0.5-1.4) mg/dL Estim Creat Clear Calc 90.4 Estimated GFR > 60 Random Glucose 90 (60-115) mg/dL Calcium 9.4 (8.4-10.2) mg/dL Total Bilirubin 0.4 (0.0-1.0) mg/dL Direct Bilirubin 0.2 (0.0-0.5) mg/dL AST 13 (5-31) U/L ALT 11 (0-31) U/L Alkaline Phosphatase 46 (39-117) U/L Total Protein 7.3 (6.5-8.0) g/dL Albumin 4.8 (3.5-5.0) g/dL Urine Color YELLOW Urine Appearance CLEAR Urine pH 5.5 (5.0-8.0) Ur Specific [place] >= 1.030 H (1.005-1.025) Urine Protein NEG (NEG-TRACE) MG/DL Urine Glucose (UA) NEG (NEG) MG/DL Urine Ketones 15 (NEG) MG/DL Urine Blood NEG (NEG) Urine Nitrite NEG (NEG) Ur Leukocyte Esterase NEG (NEG) Urine Test (NEGATIVE) 09/17/20 Range/Units 03:17 WBC (4.8-10.8) X10*3/uL RBC (4.20-5.50) X10*6/uL Hgb (12.0-16.0) g/dl Hct (37-47) % MCV (80-98) fL MCH (27.0-33.0) pg MCHC (31.0-35.0) g/dl RDW (11.0-16.0) % Plt Count (160-400) X10*3/uL MPV (9.4-12.3) fL Immature Gran % (Auto) (0.0-0.4) % Neut % (Auto) (45-73) % Lymph % (Auto) (20-40) % [place] % (Auto) (2-11) % Eos % (Auto) (0-4) % Baso % (Auto) (0-2) % Lymph # (Auto) (1.2-4.9) X10*3/uL [place] # (Auto) (0.1-1.2) X10*3/uL Eos # (Auto) (0.0-0.4) X10*3/uL Baso # (Auto) (0.0-0.2) X10*3/uL Abs Immat Gran (auto) (0.00-0.03) X10*3/uL Absolute Neuts (auto) (2.0-8.3) X10*3/uL Absolute Nucleated RBC (0.0-0.012) X10*3/uL Nucleated RBC % (auto) (0.0-0.2) /100WBC Sodium (135-145) mmol/L Potassium (3.3-5.1) mmol/L Chloride (96-108) mmol/L Carbon Dioxide (22-29) mmol/L Anion Gap (12-20) BUN (9-16) mg/dL Creatinine (0.5-1.4) mg/dL Estim Creat Clear Calc Estimated GFR Random Glucose (60-115) mg/dL Calcium (8.4-10.2) mg/dL Total Bilirubin (0.0-1.0) mg/dL Direct Bilirubin (0.0-0.5) mg/dL AST (5-31) U/L ALT (0-31) U/L Alkaline Phosphatase (39-117) U/L Total Protein (6.5-8.0) g/dL Albumin (3.5-5.0) g/dL Urine Color Urine Appearance Urine pH (5.0-8.0) Ur Specific [place] (1.005-1.025) Urine Protein (NEG-TRACE) MG/DL Urine Glucose (UA) (NEG) MG/DL Urine Ketones (NEG) MG/DL Urine Blood (NEG) Urine Nitrite (NEG) Ur Leukocyte Esterase (NEG) Urine Test NEGATIVE (NEGATIVE) Imaging Data Pelvic ultrasound: Radiologist's impression: FINDINGS: The uterus is of normal size and echogenicity measuring 5.8 x 2.5 x 4.1 cm. A regular homogeneous endometrium is identified measuring 0.6 cm. Both ovaries are of normal size and echogenicity. Numerous ovarian follicles are present bilaterally. The right measures 3.3 x 2.5 x 2.4 cm for a volume of 10.4 cc. The left measures 3.2 x 2.0 x 2.4 cm for a volume of 8.0 cc. Normal arterial and venous blood flow is present bilaterally. There is trace likely physiologic pelvic free fluid. US/US pelvic and transvaginal IMPRESSION: No evidence for ovarian torsion. Unremarkable pelvic ultrasound. CT scan - abdomen: Radiologist's impression: FINDINGS: The visualized lung bases are clear. The visualized portions of the heart are unremarkable. The liver is of normal size and attenuation without focal lesions nor intrahepatic biliary ductal dilation. A normal gallbladder is identified. There is no wall thickening or discernible pericholecystic fluid. The spleen, pancreas, adrenal glands are unremarkable. Both kidneys are of normal size and attenuation without hydronephrosis or nephrolithiasis. Following the administration of IV contrast, prompt symmetric nephrograms are displayed. There is no abdominal free fluid. There is neither mesenteric nor retroperitoneal lymphadenopathy. There is equivocal fat stranding noted about the ascending colon without significant wall thickening. Otherwise, unremarkable unopacified loops of small and large bowel are identified. A normal appendix is identified. There is no pelvic free fluid. The urinary bladder is unremarkable. There is neither pelvic nor inguinal lymphadenopathy. Bone windows: Neither sclerotic nor lytic bone lesions are identified. CT/CT abdomen pelvis w con IMPRESSION: Normal appendix identified. Equivocal fat stranding noted about the ascending colon without wall thickening. The appearance is nonspecific, though consider mild manifestations of colitis. Automated exposure control (Care Dose) Adjustment of the mA and/or kv according to patient size (this includes techniques or standardized protocols for targeted exams where dose is matched to indication / reason for exam; i.e. extremities or head). Discharge Plan Discharge Clinical Impression: Abdominal pain Qualifiers: Abdominal location: right lower quadrant Qualified Code(s): R10.31 - Right lower quadrant pain Patient Disposition: Home, Self-Care Instructions: Abdominal Pain (ED) Additional Instructions: For pain you may alternate ibuprofen and Tylenol. Please follow-up with your primary care physician tomorrow. If you have any worsening or new symptoms, please return to the emergency room or call 911 Prescriptions: No Action dextroamphetamine-amphetamine 15 mg capsule,extended release 24hr 1 cap PO QAM RF: 0 escitalopram oxalate 10 mg tablet 10 mg PO QAM RF: 0
[2020-09-17 01:44] VITALS: BP 105/69; PULSE 89; RESP 16; TEMP 36.8; O2SAT 100; BMI 19.1
[2020-09-17] MEDS: 0.9 % Sodium Chloride 1,000 ML 999 ML IVCONT (01:58)
[2020-09-17] MEDS: ondansetron HCL 4 MG/2 ML VIAL IVPUSH (02:00)
[2020-09-17 02:04] VITALS: RESP 16
[2020-09-17] MEDS: Morphine Sulfate 4 MG/ML CARTRIDGE IVPUSH (02:04)
[2020-09-17 02:23] LABS: MANUAL DIFF FLAG NO
[2020-09-17 02:24] LABS: Basophils Percent Auto 0.2 % (0-2); Eosinophils Absolute Auto 0.1 X10*3/uL (0.0-0.4); Eosinophils Percent Auto 1.5 % (0-4); Hematocrit 37.8 % (37-47); Hemoglobin 12.5 g/dl (12.0-16.0); Imm Gran Abs Auto 0.01 X10*3/uL (0.00-0.03); Imm Gran Pct Auto 0.2 % (0.0-0.4); Lymphocytes Absolute Auto 2.3 X10*3/uL (1.2-4.9); Mean Corpuscular HGB Conc 33.1 g/dl (31.0-35.0); Mean Corpuscular Hemoglobin 28.3 pg (27.0-33.0); Mean Corpuscular Volume 85.7 fL (80-98); Mean Platelet Volume 9.9 fL (9.4-12.3); Monocytes Absolute Auto 0.5 X10*3/uL (0.1-1.2); Neutrophils Percent Auto 41.1 % (45-73); Platelet Count 244 X10*3/uL (160-400); Red Blood Count 4.41 X10*6/uL (4.20-5.50); Red Cell Distribution Width 12.1 % (11.0-16.0); White Blood Count 4.8 X10*3/uL (4.8-10.8)
[2020-09-17 02:49] LABS: Alanine Aminotransferase 11 U/L (0-31); Albumin Level 4.8 g/dL (3.5-5.0); Alkaline Phosphatase 46 U/L (39-117); Anion Gap 16 (12-20); Aspartate Amino Transferase 13 U/L (5-31); Bilirubin Direct 0.2 mg/dL (0.0-0.5); Bilirubin Total 0.4 mg/dL (0.0-1.0); Blood Urea Nitrogen 14 mg/dL (9-16); Calcium 9.4 mg/dL (8.4-10.2); Carbon Dioxide 22 mmol/L (22-29); Chloride 106 mmol/L (96-108); Creatinine Clr Calc Pharmacy 90.4; Estimated Glomerular Filt Rate > 60; Glucose Random 90 mg/dL (60-115); Potassium 3.9 mmol/L (3.3-5.1); Sodium 140 mmol/L (135-145); Total Protein 7.3 g/dL (6.5-8.0)
--- NOTE | 2020-09-17 03:05 | PC.NURSE ---
Pt ambulating to CT with a hawk/steady gait.
[2020-09-17] MEDS: iohexoL 350 MG/ML 100 ML INFUS..BTL 85 ML IV (03:14)
[2020-09-17 03:37] LABS: Glucose Urine UA NEG (NEG); Leukocyte Esterase Urine NEG (NEG); Nitrite Urine NEG (NEG); PH 5.5 (5.0-8.0); Specific Gravity - Urine >= 1.030 (1.005-1.025); Urine Blood NEG (NEG); Urine Ketones 15 MG/DL (NEG); Urine Protein NEG (NEG-TRACE)
[2020-09-17 03:38] LABS: Appearance Urine CLEAR; Color Urine YELLOW
[2020-09-17 03:40] LABS: UPreg QC Valid YES; Urine Pregnancy NEGATIVE (NEGATIVE)
[2020-09-17 03:46] VITALS: BP 102/67; PULSE 84; RESP 16
--- NOTE | 2020-09-17 04:30 | PC.NURSE ---
This RN and MD Elena at bedside for pelvic, swabs obtained and sent. Pt off to U/S in wheelchair.
[2020-09-17 04:36] VITALS: RESP 16
[2020-09-17 06:27] VITALS: BP 101/68; PULSE 75; RESP 16
[2020-09-17 10:03] LABS: CT PCR NOT DETECTED (Not Detect.); NG PCR NOT DETECTED (Not Detect.)
[2020-09-17 11:03] LABS: BV Int Neg Control Negative (Negative); BV Int Pos Control Positive (Positive)
== END 2020-09-17 06:56 | disposition home or self-care (01) ==
PROVIDERS: Emergency Provider Emergency Medicine
DX: R10.31 Right lower quadrant pain (principal); Z79.899 Other long term (current) drug therapy
CPT/HCPCS: 36415; 74177; 76830; 76856; 80048; 80076; 81003; 81025; 85025; 87480; 87491; 87510; 87591; 87660; 93975; 96361; 96365; 96375; 99284; J2270; J2405; Q9967

== ENCOUNTER 2021-03-15 08:30 | Outpatient (REF) | payer OTHER, SELFPAY ==
[2021-03-15 10:31] LABS: Alanine Aminotransferase 10 U/L (0-31); Albumin Level 4.7 g/dL (3.5-5.0); Alkaline Phosphatase 44 U/L (39-117); Anion Gap 12 (12-20); Aspartate Amino Transferase 14 U/L (5-31); Bilirubin Total 0.4 mg/dL (0.0-1.0); Blood Urea Nitrogen 12 mg/dL (9-16); Calcium 9.8 mg/dL (8.4-10.2); Carbon Dioxide 23 mmol/L (22-29); Chloride 109 mmol/L (96-108); Estimated Glomerular Filt Rate > 60; Glucose Random 88 mg/dL (60-115); Potassium 4.1 mmol/L (3.3-5.1); Sodium 140 mmol/L (135-145); Total Protein 7.3 g/dL (6.5-8.0)
[2021-03-15 10:51] LABS: Thyroid Stimulating Hormone 1.29 uIU/mL (0.32-4.0)
[2021-03-19 13:30] LABS: Transglutaminase IgA <1.0 U/mL
[2021-03-19 13:37] LABS: Gliadin Deamidated IgA Ab <1.0 U/mL; Gliadin Deamidated IgG Ab <1.0 U/mL
[2021-03-19 13:52] LABS: Vitamin D 25-OH, D2 <4 ng/mL; Vitamin D 25-OH, D3 22 ng/mL; Vitamin D 25-OH, Total 22 ng/mL (30-100)
== END 2021-03-15 08:31 | disposition home or self-care (01) ==
LOC: HO.LAB 08:30
PROVIDERS: PCP Internal Medicine; Visit Provider Internal Medicine
DX: K52.9 Noninfective gastroenteritis and colitis, unspecified (principal); E55.9 Vitamin D deficiency, unspecified; R63.4 Abnormal weight loss
CPT/HCPCS: 36415; 80053; 82306; 83516; 84443

== ENCOUNTER 2021-03-24 11:12 | Outpatient (REF) | payer OTHER, SELFPAY ==
[2021-03-24 12:34] LABS: CDiff Gene PCR NEGATIVE (Negative)
[2021-03-24 13:28] LABS: Leukocytes Stool Qualitative NEGATIVE (NEGATIVE)
== END 2021-03-24 11:13 | disposition home or self-care (01) ==
LOC: HO.LNP 11:12
PROVIDERS: Visit Provider Internal Medicine
DX: K52.9 Noninfective gastroenteritis and colitis, unspecified (principal)
CPT/HCPCS: 87045; 87046; 87329; 87338; 87493; 89055

== ENCOUNTER 2021-05-23 12:51 | Outpatient (REF) | payer OTHER, SELFPAY ==
[2021-05-23 15:02] LABS: C Reactive Protein 0.07 mg/dL (< or = 0.50)
[2021-05-23 15:16] LABS: Erythrocyte Sedimentation Rate 5 MM/HR (0-20)
[2021-05-23 15:24] LABS: Vitamin D 25-OH Total 18.1 ng/mL (>30)
[2021-05-23 15:43] LABS: Folate 15.7 ng/mL (> or = 4.0); Vitamin B12 352 pg/mL (200-900)
[2021-05-25 04:57] LABS: Lyme Abs Screen <0.90 index
[2021-05-25 12:41] LABS: Anti Nuclear Antibody Screen NEGATIVE (NEGATIVE)
[2021-05-26 11:46] LABS: IgA 253 mg/dL (47-310); IgG 1099 mg/dL (600-1640); IgM 76 mg/dL (50-300)
[2021-05-26 17:02] LABS: Vitamin C 1.2 mg/dL (0.3-2.7)
[2021-05-27 11:26] LABS: Vitamin B5 (Pantothenic Acid) <40 ng/mL (<275)
[2021-05-27 11:36] LABS: Nicotinamide <20 ng/mL; Vit B3 - Nicotinic Acid <20 ng/mL
[2021-05-27 13:17] LABS: Vitamin B6 8.5 ng/mL (2.1-21.7)
[2021-05-27 13:56] LABS: Zinc 80 mcg/dL (60-130)
[2021-05-29 16:37] LABS: Vitamin K1 203 pg/mL (130-1500)
[2021-05-30 17:42] LABS: Histamine Plasma <1.5 ng/mL (< OR = 1.8)
[2021-05-31 18:01] LABS: Vitamin A 48 mcg/dL (38-98)
[2021-05-31 21:42] LABS: Beta-Gamma Tocopherol 1.1 mg/L (<=4.3)
== END 2021-05-23 12:52 | disposition home or self-care (01) ==
LOC: HO.LAB 12:51
PROVIDERS: PCP Internal Medicine; Referring Provider Internal Medicine; Visit Provider Internal Medicine Gastroenterology
DX: K52.9 Noninfective gastroenteritis and colitis, unspecified (principal); R10.31 Right lower quadrant pain; R63.4 Abnormal weight loss; R79.82 Elevated C-reactive protein (CRP); Z91.030 Bee allergy status
CPT/HCPCS: 36415; 82180; 82306; 82607; 82746; 82784; 83088; 83520; 84207; 84446; 84590; 84591; 84597; 84630; 85652; 86038; 86039; 86140; 86617; 86618

== ENCOUNTER 2021-05-24 11:42 | Outpatient (REF) | payer OTHER, SELFPAY ==
[2021-05-28 13:56] LABS: Fecal Fat Qualitative Normal (Normal)
[2021-05-28 17:16] LABS: Calprotectin, Fecal 17 mcg/g
[2021-05-31 20:46] LABS: Pancreatic Elastase-1 >500 mcg/g
== END 2021-05-24 11:43 | disposition home or self-care (01) ==
LOC: HO.LNP 11:42
PROVIDERS: Visit Provider Internal Medicine Gastroenterology
DX: R10.31 Right lower quadrant pain (principal); K52.9 Noninfective gastroenteritis and colitis, unspecified; R63.4 Abnormal weight loss
CPT/HCPCS: 82656; 82705; 83993

== ENCOUNTER 2021-06-02 09:50 | Day surgery (SDC) | payer OTHER, SELFPAY ==
--- NOTE | 2021-06-01 11:40 | HO.ANESPROP2 ---
Documented by User: Aleisha Morales NP 06/01/21 11:41 HPI - Anesthesia Eval Consult details Narrative: 26yo F for Upper Endoscopy and Colonoscopy PMFSH Active Problems Active Problems: All Active Problems (Updated 03/15/21 @ 08:11 by Chantel Burks MD) Chronic diarrhea (Acute) JEROMY (generalized anxiety disorder) (Acute) Mild recurrent major depression (Acute) ADHD (Acute) Abdominal pain (Acute) Unexplained weight loss (Acute) Past Medical History Medical History ADHD Chronic diarrhea JEROMY (generalized anxiety disorder) Mild recurrent major depression Family History Family History Mother Breast cancer Hypertension Cataract Anxiety Father Hypertension ADHD Family/Other Substance use disorder Surgical History Surgical History History of wisdom tooth extraction Social History Social History Housing: House Alcohol intake: current Alcohol intake frequency: holidays/special occasions only Alcohol type: beer Patient Tobacco Use Status: Never used Tobacco e-Cigarette/Vaping Use: Never Used Second Hand Smoke Exposure: No Use of substances other than those prescribed or required for medical reasons: No Are you DNR?: No Advance Directives: No Advance Directives Information Provided: Yes Patient : No (HCG pending) service: No Current occupational status: employed Current occupational exposures/hazards: No Meds Allergies Allergy/AdvReac Type Severity Reaction Status Date / Time bees Allergy Intermediate dizziness, Uncoded 03/15/21 08:08 vomiting, headaches Home Medications Medication Instructions Recorded Confirmed Last Taken Type dextroamphetamine-amphetamine ER 1 cap PO QAM 09/14/20 03/15/21 Unknown History 15 mg 24hr capsule,extend release escitalopram oxalate 10 mg tablet 10 mg PO QAM 09/14/20 03/15/21 Unknown History albuterol sulfate 90 mcg/actuation 2 puff INHALATION Q4-6H PRN 03/15/21 03/15/21 Unknown History aerosol inhaler etonogestrel 68 mg subdermal SUBDERMAL 03/15/21 03/15/21 Unknown History implant (Nexplanon) Exam Exam Date and Time: June 01, 2021 1140 Pertinent Lab Results Pertinent Lab Results: Laboratory Tests 09/17/20 03/15/21 01:51 08:39 WBC 4.8 Hgb 12.5 Hct 37.8 Plt Count 244 Sodium 140 Potassium 4.1 Chloride 109 H Carbon Dioxide 23 BUN 12 Creatinine 0.86 Assessment and Plan Assessment Anesthesia Assessment: Chart Reviewed Documented by User: Gerardo Serna 06/02/21 11:29 PMFSH Past Medical History Medical History ADHD Chronic diarrhea JEROMY (generalized anxiety disorder) Mild recurrent major depression Family History Family History Mother Breast cancer Hypertension Cataract Anxiety Father Hypertension ADHD Family/Other Substance use disorder Family history of problems with anesthesia: No Surgical History Surgical History History of wisdom tooth extraction History of Problems with Anesthesia: No Social History Social History Housing: House Alcohol intake: current Alcohol intake frequency: holidays/special occasions only Alcohol type: beer Patient Tobacco Use Status: Never used Tobacco e-Cigarette/Vaping Use: Never Used Second Hand Smoke Exposure: No Use of substances other than those prescribed or required for medical reasons: No Are you DNR?: No Advance Directives: No Advance Directives Information Provided: Yes Patient : No (HCG pending) service: No Current occupational status: employed Current occupational exposures/hazards: No Meds Allergies Allergy/AdvReac Type Severity Reaction Status Date / Time bees Allergy Intermediate dizziness, Uncoded 03/15/21 08:08 vomiting, headaches Home Medications Medication Instructions Recorded Confirmed Last Taken Type dextroamphetamine-amphetamine ER 1 cap PO QAM 09/14/20 03/15/21 Unknown History 15 mg 24hr capsule,extend release escitalopram oxalate 10 mg tablet 10 mg PO QAM 09/14/20 03/15/21 Unknown History albuterol sulfate 90 mcg/actuation 2 puff INHALATION Q4-6H PRN 03/15/21 03/15/21 Unknown History aerosol inhaler etonogestrel 68 mg subdermal SUBDERMAL 03/15/21 03/15/21 Unknown History implant (Nexplanon) Exam Airway Mallampati Class: I Neck ROM: Full Loose/Missing/Broken Teeth: Yes (Fillings ) Heart: rrr Lungs: bl breath sounds Assessment and Plan Final Anesthetic Review Family History of Problems with Anesthesia: No History of Problems with Anesthesia: No NPO: Yes ASA Class: II and Emergency Final Preanesthetic Review: Anes Risks/Benef Reviewed Patient Risk: Intermediate Procedure Risk: Intermediate Anesthetic Plan Anesthetic Plan: MAC: Disposition: Standard PACU
--- NOTE | 2021-06-02 10:26 | MHC.SHP ---
Pre-Procedural Eval Section A Date of Service: 06/02/21 The patient is an INPATIENT: No The History & Physical has been completed within 30 days and I have reviewed it.: Yes Section B Chief Complaint: gastroenteritis and colitis,lower quadrant pain Allergies: Allergies Allergy/AdvReac Type Severity Reaction Status Date / Time bees Allergy Intermediate dizziness, Uncoded 03/15/21 08:08 vomiting, headaches Plan Diagnosis/Plan: Unchanged I have reviewed the history and physical and performed a pertinent physical examination on my patient. No changes have occurred unless specified.
[2021-06-02 10:39] LABS: UPreg QC Valid YES
[2021-06-02 10:41] LABS: Urine Pregnancy NEGATIVE (NEGATIVE)
[2021-06-02 10:58] VITALS: BP 108/76; PULSE 72; RESP 16; TEMP 37; O2SAT 100; BMI 19.1
[2021-06-02] MEDS: Lactated Ringers 1,000 ML 100 ML IVCONT (11:07)
--- NOTE | 2021-06-02 11:51 | P.BOP_ITS ---
Brief Operative Note Date of Service: 06/02/21 Pre-op diagnosis: weight loss Post-op diagnosis: same Procedure: see op note Surgeon: Laurel Key MD Anesthesia: MAC Was an Associate Director Qa used for this Procedure?: No Estimated blood loss (mL): 0 Condition: stable Disposition: PACU
--- NOTE | 2021-06-02 11:51 | P.OP_ITS ---
Operative Note Operative Note Date of Service: 06/02/21 Narrative: Operative Information Procedure Description: EGD, Colonoscopy FLEXIBLE TRANSORAL UPPER GASTROINTESTINAL ENDOSCOPY AND COLONOSCOPY PROCEDURE NOTE UPPER ENDOSCOPY Consent: Indications for the procedure and potential complications of bleeding, perforation, reaction to medications and missed diagnosis were discussed with the patient and informed consent was obtained. Instrument: Olympus GIF H 190 J mid size upper endoscope Monitoring: Vital signs and clinical assessment, continuous EKG monitoring, Pulse oximetry, Carbon Dioxide monitoring and blood pressure monitoring were done throughout the procedure. Procedure: The patient was placed in the left lateral decubitis position and pre-procedure medications were administered and a bite block was placed. The endoscope was inserted into the mouth and advanced under direct vision to the third part of duodenum. A careful inspection was made as the upper endoscope was withdrawn including a retroflexed examination of the proximal stomach; Findings and interventions are described below. Findings: Larynx:normal Esophagus: GE junction at 39 cm, diaphragm hiatus at 39 cm, bogginess and erythema at GEJ, bx taken as well as from random esophagus Stomach: Patchy erythema. Biopsies were obtained. Grade 2 flap valve on retroflexed examination of the cardia. Duodenum: Normal bulb and descending duodenum, bx taken. There did appear to be some extrinsic compression of the second part of duodenum. Intervention: Biopsies as noted above COLONOSCOPY Instrument: Olympus variable stiffness pediatric scope 190L Colonoscopy Monitoring: Vital signs and clinical assessment, continuous EKG monitoring, Pulse oximetry, Carbon Dioxide monitoring and blood pressure monitoring were done throughout the procedure. Colon withdrawal time was 13 minutes. Procedure: The patient was placed in the left lateral decubitis position and pre-procedure medications were administered. After a digital rectal examination of the ano-rectum, the video colonoscope was inserted into the rectum and advanced through the colon to the cecum/TI. The colonoscope was slowly withdrawn in a retrograde panoramic fashion and the colon mucosa was carefully examined including a retroflexed view of the rectum. Findings and interventions are described below. Procedure Difficulty: Findings: Terminal Ileum-normal, bx taken random colon bx taken Cecum:normal Ascending Colon: normal Transverse Colon -normal Descending Colon:normal Sigmoid Colon: normal Rectum: Retroflexion with small internal hemorrhoids, grade I Anorectum - normal Colon preparation: [place] Bowel Preparation Scale Right colon; 2 Transverse colon: 3 Left colon; 3 (0 = Unprepared colon segment with mucosa not seen due to solid stool that cannot be cleared. 1 = Portion of mucosa of the colon segment seen, but other areas of the colon segment not well seen due to staining, residual stool and/or opaque liquid. 2 = Minor amount of residual staining, small fragments of stool and/or opaque liquid, but mucosa of colon segment seen well. 3 = Entire mucosa of colon segment seen well with no residual staining, small fragments of stool or opaque liquid) Impression and Post Procedure Diagnosis: Endoscopy Findings: mild gastritis esophagitis Colonoscopy Findings: internal hemorrhoids Plan: Await Pathology results Repeat Colonoscopy aged 45 or earlier if clinically indicated High fiber diet leaflet avoid straining at stool, epsom salts and sitz bath, anusol supps or cream doppler to r/o SMA syndrome Above findings were reviewed with the patient and relevant handouts were provided if indicated.
[2021-06-02 12:21] VITALS: BP 109/69; PULSE 56; RESP 11; TEMP 36.8; O2SAT 100
[2021-06-02 12:36] VITALS: BP 103/59; PULSE 77; RESP 17; O2SAT 100
[2021-06-02 12:52] VITALS: BP 101/56; PULSE 72; RESP 17; O2SAT 99
== END 2021-06-02 13:16 | disposition home or self-care (01) ==
PROVIDERS: Nurse Practitioner; PCP Internal Medicine; Visit Provider Internal Medicine Gastroenterology
PROC: (CPT 45380; principal; 2021-06-02 11:10)
DX: K52.9 Noninfective gastroenteritis and colitis, unspecified (principal); K64.0 First degree hemorrhoids; R10.31 Right lower quadrant pain; K29.60 Other gastritis without bleeding; R63.4 Abnormal weight loss; Z68.1 Body mass index [BMI] 19.9 or less, adult; K20.80 Other esophagitis without bleeding; K21.9 Gastro-esophageal reflux disease without esophagitis; K44.9 Diaphragmatic hernia without obstruction or gangrene; J45.909 Unspecified asthma, uncomplicated; F33.0 Major depressive disorder, recurrent, mild; F41.1 Generalized anxiety disorder
CPT/HCPCS: 45380; 43239; 81025; 88305; 88313; 88341; 88342; J2370

== ENCOUNTER → 2021-07-08 11:48 | Outpatient (BNVA) | payer OTHER, SELFPAY | PROVIDERS: PCP Internal Medicine; Referring Provider Internal Medicine; Visit Provider Internal Medicine Gastroenterology ==

== ENCOUNTER 2021-09-01 08:58 | Outpatient (REF) | payer OTHER, SELFPAY ==
--- NOTE | ~2021-09-01 | US_ITS ---
EXAMINATION: US SMA CLINICAL INFORMATION: Right lower quadrant pain, abdominal pain, weight loss COMPARISON: CT abdomen and pelvis 09/17/2020 TECHNIQUE: Real-time ultrasound and Doppler techniques (integrating B-mode 2-D vascular images, Doppler spectral analysis and color flow Doppler imaging) were utilized to interrogate the abdominal aorta and its branches. FINDINGS: Aorta proximal SMA: 134 cm/s Celiac artery: With inspiration, 167 cm/s Celiac artery: With expiration, 223 cm/s Superior mesenteric artery proximal: 174 cm/s Superior mesenteric artery mid: 138 cm/s Superior mesenteric artery distal: 118 cm/s Inferior mesenteric artery: 95.8 cm/s Hepatic artery: 111 cm/s Splenic artery: 128 cm/s Incidental note is made of irregular heart rate. US/US SMA IMPRESSION: 1. There is elevated velocity within the celiac artery during expiration specifically, suggesting possible median arcuate ligament syndrome. Correlation with CTA of the abdomen would be helpful to confirm the diagnosis. 2. Examination of the Doppler waveforms suggests there may be an arrhythmia present, however, this could also be attributed to respiratory variation. Clinical correlation requested.
== END 2021-09-01 08:59 | disposition home or self-care (01) ==
LOC: HO.US 08:58
PROVIDERS: PCP Internal Medicine; Visit Provider Internal Medicine Gastroenterology
DX: R10.31 Right lower quadrant pain (principal); R63.4 Abnormal weight loss
CPT/HCPCS: 93976

== ENCOUNTER 2021-09-21 07:43 | Outpatient (REF) | payer OTHER, SELFPAY ==
--- NOTE | ~2021-09-21 | CT_ITS ---
EXAMINATION: CT ANGIOGRAM ABDOMEN AND PELVIS CLINICAL INFORMATION: Celiac artery compression COMPARISON: Duplex ultrasound of the abdomen on 09/01/2021, CT abdomen pelvis on 09/17/2020 TECHNIQUE: Multiple axial images were obtained through the abdomen and pelvis following the administration of 100 mL of Omnipaque 350 intravenous contrast. MIPS images were produced and reviewed. This CT examination was performed using dose optimization techniques as appropriate, variously including the following: *Automated exposure control *Adjustment of mA and/or kV according to patient size (this includes techniques or standardized protocols for targeted exams where dose is matched to indication/reason for exam; i.e. extremities or head) *Use of iterative reconstruction technique DLP: 378 mGy-cm FINDINGS: Lower chest: Unremarkable. There are no pleural effusions. Liver: Normal in size and attenuation. No focal lesions. Gallbladder and bile ducts: The gallbladder is normal. No intrahepatic or extrahepatic biliary ductal dilatation. Spleen: Normal in size and attenuation. Pancreas: Unremarkable. Adrenal glands: Unremarkable. Right kidney: The right kidney is normal. There is no hydronephrosis or hydroureter. Left kidney: The left kidney is normal. There is no hydronephrosis or hydroureter. Lymph nodes: There is no lymphadenopathy in the abdomen or pelvis. Gastrointestinal tract: The stomach, small, and large bowel are normal in course and caliber. The appendix is identified and is within normal limits. Urinary bladder: The bladder is normal. Pelvic organs: The uterus is unremarkable. Vasculature: The abdominal aorta is normal in course and caliber. There is mild mass effect on the origin of the celiac artery by the diaphragm. The celiac artery is other flores patent. The SMA and MARA are patent. The bilateral renal arteries are patent. The iliofemoral arteries are patent. Additional findings: There is no intraperitoneal free air or fluid. Soft tissues: Unremarkable. Osseous structures: No lytic or blastic lesions identified. CT/CT angio abdomen pelvis IMPRESSION: Mild mass effect on the origin of the celiac artery by the diaphragm consistent with median arcuate ligament syndrome.
[2021-09-21] MEDS: iohexoL 350 MG/ML 100 ML INFUS..BTL 80 ML IV (08:43)
== END 2021-09-21 07:44 | disposition home or self-care (01) ==
LOC: HO.CT 07:43
PROVIDERS: PCP Internal Medicine; Visit Provider Internal Medicine Gastroenterology
DX: I77.4 Celiac artery compression syndrome (principal)
CPT/HCPCS: 74174; Q9967

== ENCOUNTER → 2022-03-20 09:59 | Outpatient (RCR) | payer OTHER, SELFPAY ==
[2020-04-12 07:58] LABS: COVID-19 Test Negative (Negative)
[2020-04-26 08:54] LABS: COVID-19 Test Negative (Negative); IDNOW Serial# 55D5AD1C
[2020-05-04 08:28] LABS: COVID-19 Test Negative (Negative)
[2020-05-20 10:03] LABS: SARS-COV-2 PCR UMBRL Not Detected
[2020-05-26 11:52] LABS: SARS-COV-2 PCR UMBRL Not Detected
[2020-06-03 10:30] LABS: SARS-COV-2 PCR UMBRL Not Detected
[2020-06-10 11:14] LABS: SARS-COV-2 PCR UMBRL Not Detected
[2020-06-17 13:23] LABS: SARS-COV-2 PCR UMBRL Not Detected
== END | disposition home or self-care (01) ==
LOC: HO.EMPCOV 04-12 07:36
PROVIDERS: Visit Provider Internal Medicine
DX: Z20.828 Contact with and (suspected) exposure to other viral communicable diseases (principal)
CPT/HCPCS: 36415; 87635; C9803; U0003

== ENCOUNTER 2022-04-25 09:37 | Outpatient (REF) | payer OTHER, SELFPAY ==
[2022-04-25 09:55] LABS: MANUAL DIFF FLAG NO
[2022-04-25 10:10] LABS: Basophils Percent Auto 0.6 % (0-2); Eosinophils Absolute Auto 0.1 X10*3/uL (0.0-0.4); Eosinophils Percent Auto 3.5 % (0-4); Hematocrit 34.8 % (37.0-47.0); Hemoglobin 11.4 g/dl (12.0-16.0); Imm Gran Abs Auto 0.01 X10*3/uL (0.00-0.03); Imm Gran Pct Auto 0.3 % (0.0-0.4); Lymphocytes Absolute Auto 1.6 X10*3/uL (1.2-4.9); Lymphocytes Percent Auto 46.5 % (20-40); Mean Corpuscular HGB Conc 32.8 g/dl (31.0-35.0); Mean Corpuscular Hemoglobin 29.4 pg (27.0-33.0); Mean Corpuscular Volume 89.7 fL (80.0-98.0); Mean Platelet Volume 9.7 fL (9.4-12.3); Monocytes Absolute Auto 0.3 X10*3/uL (0.1-1.2); Monocytes Percent Auto 9.9 % (2-11); Neutrophils Absolute Auto 1.3 x10*3/uL (2.0-8.3); Neutrophils Percent Auto 39.2 % (45-73); Platelet Count 175 X10*3/uL (160-400); Red Blood Count 3.88 X10*6/uL (4.20-5.50); Red Cell Distribution Width 12.5 % (11.0-16.0); White Blood Count 3.4 X10*3/uL (4.8-10.8)
[2022-04-25 13:31] LABS: Alanine Aminotransferase 18 U/L (0-31); Albumin Level 4.5 g/dL (3.5-5.0); Alkaline Phosphatase 45 U/L (39-117); Anion Gap 13 (12-20); Aspartate Amino Transferase 16 U/L (5-31); Bilirubin Total 0.4 mg/dL (0.0-1.0); Blood Urea Nitrogen 15 mg/dL (9-16); Calcium 9.4 mg/dL (8.4-10.2); Carbon Dioxide 24 mmol/L (22-29); Chloride 108 mmol/L (96-108); Estimated Glomerular Filt Rate > 60; Glucose Random 82 mg/dL (60-115); Potassium 4.1 mmol/L (3.3-5.1); Sodium 141 mmol/L (135-145); Total Protein 6.8 g/dL (6.5-8.0); Vitamin D 25-OH Total 17.6 ng/mL (>30)
== END 2022-04-25 09:38 | disposition home or self-care (01) ==
LOC: HO.LAB 09:37
PROVIDERS: PCP Internal Medicine; Visit Provider Nurse Practitioner Family
DX: I77.4 Celiac artery compression syndrome (principal)
CPT/HCPCS: 36415; 80053; 82306; 85025

== ENCOUNTER → 2022-04-26 07:52 | Outpatient (REF) | payer OTHER, SELFPAY ==
--- NOTE | ~2022-04-26 | NM_ITS ---
EXAMINATION: IA RADIONUCLIDE SOLID FOOD GASTRIC EMPTYING 4-HOUR STUDY CLINICAL INFORMATION: Early satiety. COMPARISON: CTA abdomen and pelvis 09/21/2021. TECHNIQUE: A standard meal consisting of 4 oz of Egg Beaters brand tagged with 786 uCi Tc-99m Sulfur Colloid, 8 oz water and 0.5 slices of toast with jelly was administered orally to the patient. Images were obtained using a dual head gamma camera in the anterior and posterior projections over of the stomach immediately post ingestion and at hourly intervals up to 4 hours post ingestion. The anterior and posterior counts at each time interval were averaged using the geometric mean and expressed as percentage of the immediate post ingestion counts. FINDINGS: There is good visualization of activity in the stomach immediately post ingestion. As the study progresses, there is good clearance of activity from the stomach and visualization of progressively increasing small bowel activity. By the end of the study, there is almost no retention noted in the stomach. Retention in the stomach at each time interval was: 1 hour 89% (normal 37%-90%) 2 hours 43% (normal 30%-60%) 3 hours 90% 4 hours 7% (normal 0%-10%) IA/IA gastric emptying study IMPRESSION: Normal 4-hour solid food gastric emptying study.
== END ==
LOC: HO.NUCMED 07:52
PROVIDERS: PCP Internal Medicine; Visit Provider Internal Medicine Gastroenterology
DX: R68.81 Early satiety (principal)
CPT/HCPCS: 78264; A9541

== ENCOUNTER → 2022-05-03 12:33 | Outpatient (BNVA) | payer OTHER, SELFPAY | PROVIDERS: PCP Internal Medicine; Visit Provider Dietitian, Registered | DX: Z71.3 Dietary counseling and surveillance (principal); I77.4 Celiac artery compression syndrome | CPT/HCPCS: 97802 ==

== ENCOUNTER → 2022-07-10 15:32 | Outpatient (BNVA) | payer OTHER, SELFPAY | PROVIDERS: PCP Internal Medicine; Visit Provider Dietitian, Registered | DX: I77.4 Celiac artery compression syndrome (principal); R63.4 Abnormal weight loss | CPT/HCPCS: 97803 ==

== ENCOUNTER 2023-01-25 09:03 | Outpatient (AMB) | payer OTHER, SELFPAY ==
[2023-01-25 09:28] VITALS: BP 104/70; PULSE 72; TEMP 36.3; O2SAT 98; BMI 22.6
--- NOTE | 2023-01-25 09:28 | AM.OFFWIN_ITS ---
Intake Vital Signs 01/25/23 09:28 Height 5 ft 5 in Weight 61.745 kg BMI 22.6 BP 104/70 Blood Pressure Location Rt brachial Position Sitting Pulse 72 Pulse Source Pulse Oximeter Temp 97.3 F Temp Source Temporal Artery Scan Pulse Oximetry (%) 98 Oxygen Delivery Method Room Air Intake Visit Reasons: EP sinus Infection (masked) Intake Note: Pt is here c/o possible sinus infection. Pt states she has runny nose, chest congestion, cough and sore throat for the past four days. Pt requests a COVID 19 test due to recently traveling. Patient Tobacco Use Status: Never used Tobacco Allergies bees Allergy (Intermediate, Uncoded 01/25/23 09:31) dizziness, vomiting, headaches Do you need a note to return to daycare/school/sports/work: No HPI HPI Comments History of Present Illness Details 0937 27-year-old female history of ADHD, chronic diarrhea, anxiety, mild recurrent depression presenting to the clinic with sore throat, fatigue, malaise, frontal headache, dry cough, rhinorrhea the past few days worsening. 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 Works in healthcare and has had multiple sick contacts. Denies chest pain, shortness of breath, fevers, chills, nausea, vomiting, abdominal pain, vision changes, dizziness or weakness. NIH stroke scale 0 Physical examination significant for erythematous posterior pharynx with small ulcerations, and postnasal drip visible. Uvula midline. Speaking in full sentences controlling secretions well. No signs of abscess. Likely viral illness versus strep throat versus sinusitis versus bronchitis versus pharyngitis . Unlikely posterior stroke, stroke, intracranial hemorrhage, pneumonia, , retropharyngeal or peritonsillar abscess, epiglottitis, threat to airway, PE Plan at this time strep, COVID.. Will discharge her with albuterol, prednisone. And collared any results are positive. Educated patient on diagnosis and treatment plan, answered all question, patient verbalizes understanding. At this time patient will be discharged home, advised to return with new or worsening symptoms. Educated on worrisome signs and symptoms and when to return. At this time I feel comfortable discharge home. [facility] Medical History ADHD Chronic diarrhea JEROMY (generalized anxiety disorder) Mild recurrent major depression Surgical History H/O vascular surgery History of esophagogastroduodenoscopy (EGD) History of wisdom tooth extraction Hx of colonoscopy Family History Mother Breast cancer Hypertension Cataract Anxiety Father Hypertension ADHD Family/Other Substance use disorder Mental health disorder Social History Housing: House Alcohol intake: current Alcohol intake frequency: holidays/special occasions only Alcohol type: beer Patient Tobacco Use Status: Never used Tobacco e-Cigarette/Vaping Use: Never Used Second Hand Smoke Exposure: No service: No Current occupational status: employed Current occupational exposures/hazards: No Cognitive needs: No Hearing needs: No Vision needs: Yes Review of Systems Const Details: Constitutional : No Weight loss, No Fever, No Chills, + Fatigue, + Malaise ENT/Mouth : + sore throat, + Rhinorrhea Eyes: No Eye Pain, No Swelling, No Redness Cardiovascular : No Chest Pain, No SOB, No Dyspnea on Exertion, No Orthopnea, No Edema, No Palpitations Respiratory : + Cough, No Sputum, No Wheezing Gastrointestinal : No Nausea, No Vomiting, No Diarrhea, No Constipation, No abdominal Pain, No Hematochezia, No Melena Genitourinary : No Dysuria, No Urinary Frequency, No Hematuria, Musculoskeletal : No joint pain, No Myalgias, No Joint Swelling Skin : No Skin Lesions, No rash Neuro : No Weakness, No Numbness, No Dizziness, No Headache Psych : No Anxiety/Panic, No Depression All other systems reviewed and are negative All systems reviewed & are unremarkable except as noted in HPI and below Physical Exam Vital Signs: Last Vital Signs Temp 97.3 F 01/25/23 09:28 Pulse 72 01/25/23 09:28 BP 104/70 01/25/23 09:28 Pulse Ox 98 01/25/23 09:28 Oxygen Delivery Method Room Air 01/25/23 09:28 BMI result Body Mass Index 22.6 vss Appearance: Alert.? Oriented X3.? No acute distress.? Head: Normocephalic, atraumatic, no step-offs or deformities Eyes: Pupils equal, round and reactive to light.? ENT: Pharynx erythematous posterior pharynx with small ulcerations, and postnasal drip visible. Uvula midline. Speaking in full sentences controlling secretions well. No signs of abscess..? Neck: Normal inspection.? Neck supple.? CVS: Normal heart rate and rhythm.? Pulses normal.? Respiratory: No respiratory distress.? Breath sounds normal.? Abdomen: Soft and nontender.? Skin: Skin warm and dry.? Normal skin color.? Normal skin turgor.? Extremities: No lower extremity edema.? No calf ttp. 5/5 strength to bilateral upper and lower extremities Neuro: Oriented X 3.? No motor deficit.? No sensory deficit. CN 2-12 intact Assessment & Plan Assessment & Plan (1) Viral illness: Code(s): B34.9 - Viral infection, unspecified Plan Take your medications as prescribed. If you were prescribed antibiotics today, it is important that you take your medication to their entirety, do not skip any doses, do not finish them early. Follow-up with your primary care provider this week. Return to the emergency department with new or worsening symptoms. Such as fevers, chills, chest pain, shortness of breath, nausea, vomiting, dizziness, headache, vision changes, lethargy In case of emergency call 911 Orders: Orders SARS-CoV2/FLU/RSV Today B34.9 - Viral infection, unspecified SARS-CoV2/FLU/RSV Today R09.89 - Other specified symptoms and signs involving the circulatory and respiratory systems Coding Level of Care Code Est Pt Level 3 (56707) Diagnoses Viral illness B34.9
== END 2023-01-25 09:43 | disposition home or self-care (01) ==
PROVIDERS: PCP Internal Medicine; Visit Provider Physician Assistant
DX: J02.9 Acute pharyngitis, unspecified (principal); B34.9 Viral infection, unspecified
CPT/HCPCS: 87880; 99213

== ENCOUNTER 2023-01-25 09:37 | Outpatient (REF) | payer OTHER, SELFPAY ==
[2023-01-25 16:44] LABS: Influenza A PCR NEGATIVE (Negative); Influenza B PCR NEGATIVE (Negative); Resp Syncy Virus RNA Qual PCR NEGATIVE (Negative); SARS COV2 PCR INHOUSE NEGATIVE (Negative)
== END 2023-01-25 09:38 | disposition home or self-care (01) ==
LOC: HO.LAB 09:37
PROVIDERS: Visit Provider Physician Assistant
DX: Z20.828 Contact with and (suspected) exposure to other viral communicable diseases (principal); Z20.822 Contact with and (suspected) exposure to COVID-19
CPT/HCPCS: 0241U

== ENCOUNTER 2023-02-28 13:46 | Outpatient (AMB) | payer OTHER, SELFPAY ==
--- NOTE | 2023-02-28 13:52 | MHC.AMNUTRGE ---
Intake VS Expanded 02/28/23 13:53 Height 5 ft 5 in Weight 130 lb 15.273 oz BMI 21.8 Intake Visit Reasons: MALS/ monitor weight/LVM Allergies bees Allergy (Intermediate, Uncoded 01/25/23 09:31) dizziness, vomiting, headaches HPI Nutrition Presentation Details Pt presents for MNT related to weight loss . Pt has a hx of mediam arcuate ligament sydnrome for which she has been treated however in the mean time Pt was dealing with increased diarrhea resulting in reducing food intake due to concerns of diarrhea. Pt reports doing well now, has diarrhea on and off but much better controlled. Reports working on having daily meal routine and including a variety of foods. Pt reports carrying snacks Not having nutritional supplements Typical meal intake Oatmeal with milk ( choosing lactose free or dairy alternatives which she reports tolerating well) Sand with turkey/doss/avocado and smoothie with berries/banana lunch: broccoli and pasta with olive oil , and butter or leftover chicken tenders or chicken parm Dinner sometimes orders from [employer] or has oatmeal with peanut butter snacks on cheese/walnuts/cracker seltzer and coffee ( 1 large coffee with oatmilk) Pt reports choosing a variety of foods. Reports feeling comfortable Most Recent Diabetes Results: Creatinine 0.70 mg/dL (0.5-1.4) 04/25/22 Blood Urea Nitrogen 15 mg/dL (9-16) 04/25/22 Sodium 141 mmol/L (135-145) 04/25/22 Potassium 4.1 mmol/L (3.3-5.1) 04/25/22 Chloride 108 mmol/L (96-108) 04/25/22 Carbon Dioxide 24 mmol/L (22-29) 04/25/22 Calcium 9.4 mg/dL (8.4-10.2) 04/25/22 AST 16 U/L (5-31) 04/25/22 ALT 18 U/L (0-31) 04/25/22 Total Protein 6.8 g/dL (6.5-8.0) 04/25/22 Albumin 4.5 g/dL (3.5-5.0) 04/25/22 [facility] Medical History ADHD Chronic diarrhea JEROMY (generalized anxiety disorder) Mild recurrent major depression Surgical History H/O vascular surgery History of esophagogastroduodenoscopy (EGD) History of wisdom tooth extraction Hx of colonoscopy Family History Mother Breast cancer Hypertension Cataract Anxiety Father Hypertension ADHD Family/Other Substance use disorder Mental health disorder Social History Housing: House Alcohol intake: current Alcohol intake frequency: holidays/special occasions only Alcohol type: beer Patient Tobacco Use Status: Never used Tobacco e-Cigarette/Vaping Use: Never Used Second Hand Smoke Exposure: No service: No Current occupational status: employed Current occupational exposures/hazards: No Cognitive needs: No Hearing needs: No Vision needs: Yes Assessment & Plan Assessment & Plan (1) Median arcuate ligament syndrome: Code(s): I77.4 - Celiac artery compression syndrome (2) Unexplained weight loss: Code(s): R63.4 - Abnormal weight loss Plan: Prevention of weight loss Used wt 58 kg (wt from visit on 04/2022) est kcal needs as per 30 kcal/kg bw of 58 kg : 1740 + 1000/2000= 2740/3740 calories est prot as per 1-1.2 g/kg bw: 58- 70g/d est fluid needs as per 30 ml/kg bw: 1740 ml/d Rec Na : 2000 mg/d Patient Instructions: Continue working on having scheduled meals and snacks Continue working on choosing a variety of foods, enjoying flavors Include protein sources of foods in your meals and snacks as established Continue to include foods with soluble fiber (oatmeal, lentils apple, berries, seeds/ground seeds :flaxseed as example ) Consider taking a multivitamin for women Coding Level of Care Code Nutr Indiv Subseq (97552) Diagnoses Median arcuate ligament syndrome I77.4 Unexplained weight loss R63.4 Time Spent (min) 30
[2023-02-28 13:53] VITALS: BMI 21.8
== END 2023-02-28 14:07 | disposition home or self-care (01) ==
PROVIDERS: PCP Internal Medicine; Visit Provider Dietitian, Registered
DX: I77.4 Celiac artery compression syndrome (principal); R63.4 Abnormal weight loss

== ENCOUNTER → 2023-02-28 13:46 | Outpatient (BNVA) | payer OTHER, SELFPAY | PROVIDERS: Visit Provider Dietitian, Registered | DX: R63.4 Abnormal weight loss (principal); Z68.21 Body mass index [BMI] 21.0-21.9, adult; I77.4 Celiac artery compression syndrome; Z71.3 Dietary counseling and surveillance | CPT/HCPCS: 97803 ==

== ENCOUNTER 2023-08-27 07:27 | Outpatient (AMB) | payer OTHER, SELFPAY ==
--- NOTE | 2023-08-27 07:32 | MHC.PC.OV ---
Vital Signs 08/27/23 07:33 Height 5 ft 5 in Weight 131 lb BMI 21.8 BP 102/70 Blood Pressure Location Lt brachial Position Sitting Intake Visit Reasons: PE Intake Note: Patient here for a physical exam [employer] Required: No Accompanied by: Self / Same As Patient Allergies bees Allergy (Intermediate, Uncoded 08/27/23 07:50) dizziness, vomiting, headaches Medication List - Last Reconciled 08/27/23 by Chantel Burks MD cholecalciferol (vitamin D3) 25 mcg PO DAILY dextroamphetamine-amphetamine 15 mg ER 1 cap PO QAM escitalopram oxalate 10 mg PO QAM lorazepam 0.5 mg PO Q6H PRN Ventolin HFA 90 mcg/actuation (albuterol sulfate) 2 puffs inhalation Q6H PRN 30 days NS Tobacco use date assessed: 08/27/23 Dental Screening Dental Screen Date: 08/27/23 Did you have a dental visit in the last 12 months?: Yes Did you have a dental problem in the last 6 months where you did not have access to dental care?: No Was dental information given to patient?: Patient has dentist HPI HPI Comments History of Present Illness Details This is a 28-year-old female that comes for her physical exam. She is 22 weeks with a healthy follow by OBGYN. Denies any chest pain or shortness of breath. No fever or cough. Doing well. She has mild recurrent major depression with anxiety follow by Psychiatry that has been stable. 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 Chronic diarrhea JEROMY (generalized anxiety disorder) Mild recurrent major depression ADHD Surgical History H/O vascular surgery Hx of colonoscopy History of esophagogastroduodenoscopy (EGD) History of wisdom tooth extraction Family History Mother Breast cancer Hypertension Cataract Anxiety Father Hypertension ADHD Family/Other Substance use disorder Mental health disorder Social History Housing: House Alcohol intake: former Patient Tobacco Use Status: Never used Tobacco e-Cigarette/Vaping Use: Never Used Second Hand Smoke Exposure: No service: No Current occupational status: employed Current occupational exposures/hazards: No Cognitive needs: No Hearing needs: No Vision needs: Yes Questionnaire PHQ-9 Over the last 2 weeks, how often have you been bothered by any of the following problems? 1. Little interest or pleasure in doing things: not at all 2. Feeling down, depressed, or hopeless: not at all 3. Trouble falling or staying asleep, or sleeping too much: not at all 4. Feeling tired or having little energy: not at all 5. Poor appetite or overeating: not at all 6. Feeling bad about yourself - or that you are a failure or have let yourself or your family down: not at all 7. Trouble concentrating on things, such as reading the newspaper or watching television: not at all 8. Moving or speaking so slowly that other people could have noticed. Or the opposite - being so fidgety or restless that you have been moving around a lot more than usual: not at all 9. Thoughts that you would be better off or of hurting yourself in some way: not at all Total score: 0 Depression Screening Interpretation: Negative Depression Screening Done: Yes 73471 - PHQ-9 Billing: Yes Source: Developed by Drs. Gómez Alcaraz, Vee Keller, Felipe Hartman and colleagues, with an educational peter from [employer]. Thrive Questionnaire Date Thrive assessed: 08/27/23 I am a: Patient What is your living situation today?: I have a steady place to live Within the past 12 months, did the food you bought not last and you didn't have the money to get more?: Never true Within the past 12 months, did you worry whether your food would run out before you got money to buy more?: Never true Do you have trouble paying for medicines?: No Do you have trouble getting transportation to medical appointments?: No Do you have trouble paying your heating and electricity bill?: No Do you have trouble taking care of your child, family member or friend?: No Do you have trouble with day-to-day activities such as bathing, preparing meals, shopping, managing finances, etc.?: No Are you currently unemployed and looking for a job?: No Are you interested in more education?: No Please select the resources that you would like help with: None Currently or been in a relationship where the following occur: no concerns reported THRIVE Score: 0 AUDIT C Alcohol Use Questionnaire (AUDIT-C) 1. How often do you have a drink containing alcohol?: Never Total Score: 0 Score Reviewed/Action Taken: No JEROMY-7 AMB Questionnaire JEROMY-7 Date JEROMY - 7 assessed: 08/27/23 Feeling nervous, anxious, or on edge: 0 = Not at all Not being able to stop or control worryin = Not at all Worrying too much about different things: 0 = Not at all Trouble relaxin = Not at all Being so restless that it is hard to sit still: 0 = Not at all Becoming easily annoyed or irritable: 0 = Not at all Feeling afraid as if something awful might happen: 0 = Not at all Total JEROMY-7 score (0-4 normal; 5-9 mild; 10-14 moderate; 15-21 severe): 0 Source: Developed by Drs. Gómez Alcaraz, Vee Keller, Felipe Hartman and colleagues, with an educational peter from [employer]. JEROMY-7 Assessment Billing JEROMY-7 Assessment Tool: JEROMY-7 Assessment 36906 Review of Systems Const All systems reviewed & are unremarkable except as noted in HPI and below Eyes Reports no additional complaints, Denies change in vision and Denies other visual disturbances Card Denies chest pain at rest, Denies chest pain with activity, Denies edema, Denies irregular heart rhythm, Denies claudication, Denies dyspnea, Denies dyspnea on exertion, Denies orthopnea, Denies paroxysmal nocturnal dyspnea and Denies slow heart rate Resp Denies cough, Denies dyspnea and Denies dyspnea on exertion GI Denies abdominal pain, Denies change in bowel habits, Denies excessive flatus, Denies nausea and Denies vomiting Denies urinary incontinence, Denies urinary hesitancy and Denies urinary urgency Musc Denies atrophy, Denies deformity and Denies limited range of motion Physical exam (Primary Care) Vital Signs: Last Vital Signs BP 102/70 08/27/23 07:33 BMI result Body Mass Index 21.8 Tobacco/Smoking Status: Tobacco use Status Tobacco use date assessed 08/27/23 08/27/23 07:39 Patient Tobacco Use Status Never used Tobacco 08/27/23 07:39 e-Cigarette/Vaping Use Never Used 08/27/23 07:39 PHQ-9: PHQ-9 Score PHQ-9: Total score 0 08/27/23 07:59 Depression Screening Interpretation: Negative Thrive Assessment: Date of Thrive Assessment Date Thrive assessed 08/27/23 08/27/23 07:39 Currently or been in a relationship where the following occur: no concerns reported Const Orientation/consciousness: patient oriented x3 HENUT Head: Yes normal to inspection, Yes normocephalic and Yes atraumatic Ears: external ears normal Eyes General: appearance normal, both eyes and all related structures Eyelids: Yes eyelids normal Conjunctivae: conjunctivae normal Neck Neck: Yes normal visual inspection and Yes supple Resp Effort & Inspection: normal respiratory effort Auscultation: clear to auscultation bilaterally Cardio Jugular venous distension: no JVD Rate: regular rate Rhythm: regular rhythm Heart sounds: S1 normal heart sound present and S2 normal heart sound present GI Inspection: Yes normal to inspection Palpation (GI): Soft to palpation and nontender Auscultation: normal bowel sounds Skin General skin exam: no rashes or lesions noted Neuro General: patient oriented x3 and no focal motor deficits Extrem General: Yes full ROM Psych Appearance: grossly normal Assessment and Plan Assessment & Plan (1) Physical exam: Code(s): Z00.00 - Encounter for general adult medical examination without abnormal findings Plan: Repeat in a year. (2) Mild recurrent major depression: Code(s): F33.0 - Major depressive disorder, recurrent, mild Plan: Continue escitalopram. Follow-up with psychiatry. Coding Level of Care Code Est Pt Prev Care 18-39y(13478) Diagnoses Physical exam Z00.00 Mild recurrent major depression F33.0 Additional Codes JEROMY-7 Assessment Billing - JEROMY-7 Assessment Tool: JEROMY-7 Assessment 03628 ([id number]) Time Spent (min) 31
[2023-08-27 07:33] VITALS: BP 102/70; BMI 21.8
== END 2023-08-27 08:02 | disposition home or self-care (01) ==
PROVIDERS: Visit Provider Internal Medicine
DX: Z00.00 Encounter for general adult medical examination without abnormal findings (principal); F33.0 Major depressive disorder, recurrent, mild
CPT/HCPCS: 99395

== ENCOUNTER 2024-09-03 13:28 | Outpatient (AMB) | payer OTHER, SELFPAY ==
--- NOTE | 2024-09-03 13:30 | A.OFFPC_ITS ---
Vital Signs 09/03/24 13:34 Height 5 ft 5 in Weight 120 lb BMI 20.0 BP 112/78 Blood Pressure Location Lt brachial Position Sitting Intake Visit Reasons: PE Intake Note: Patient here for a physical exam [employer] Required: No Accompanied by: Self / Same As Patient Allergies bees Allergy (Intermediate, Uncoded 09/03/24 13:32) dizziness, vomiting, headaches Medication List - Last Reconciled 09/03/24 by Chantel Burks MD cholecalciferol (vitamin D3) 25 mcg PO DAILY dextroamphetamine-amphetamine 15 mg ER 1 cap PO QAM lorazepam 0.5 mg PO Q6H PRN sertraline 100 mg PO DAILY Ventolin HFA 90 mcg/actuation (albuterol sulfate) 2 puffs inhalation Q6H PRN 30 days NS Tobacco use date assessed: 09/03/24 Dental Screening Dental Screen Date: 09/03/24 Did you have a dental visit in the last 12 months?: Yes Did you have a dental problem in the last 6 months where you did not have access to dental care?: No Was dental information given to patient?: Patient has dentist HPI HPI Comments History of Present Illness Details The patient is a 29-year-old female presenting for her annual physical examination. She successfully delivered a baby in December last year and confirms all related medical documentation was received. She states her Pap smear is current and she is up-to-date with her Tdap vaccination, with the next dose planned for 2023 to protect the infant against pertussis. She reports an allergy to bees, and while on Vitamin D, her medications Adderall and Lorazepam are on hold due to . The patient has recently started on Sertraline 100mg prescribed by her psychiatrist. She reports using an inhaler for which a refill is requested due to its expiry. Her past medical procedures include a celiac artery bypass, colonoscopy, and e ndoscopy in 2020, and wisdom tooth extraction. Within her family history, her mother had breast cancer at menopause onset, cataracts, anxiety, and hypertension; her father has had hypertension and ADHD. She denies current smoking or alcohol use and has maintained good bloodwork results from several years ago. The patient requests evaluation for potential Clayton-Danlos Syndrome due to symptoms of joint hypermobility, musculoskeletal instability, and skin elasticity. She has no documented family history of autoimmune disorders or Clayton-Danlos Syndrome, although she notes related features in a relative during childhood. 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 Chronic diarrhea JEROMY (generalized anxiety disorder) Mild recurrent major depression ADHD Surgical History H/O vascular surgery Hx of colonoscopy History of esophagogastroduodenoscopy (EGD) History of wisdom tooth extraction Family History Mother Breast cancer Hypertension Cataract Anxiety Father Hypertension ADHD Family/Other Substance use disorder Mental health disorder Social History Housing: House Alcohol intake: former Patient Tobacco Use Status: Never used Tobacco e-Cigarette/Vaping Use: Never Used Second Hand Smoke Exposure: No service: No Current occupational status: employed Current occupational exposures/hazards: No Cognitive needs: No Hearing needs: No Vision needs: Yes Questionnaire PHQ-9 Over the last 2 weeks, how often have you been bothered by any of the following problems? 1. Little interest or pleasure in doing things: not at all 2. Feeling down, depressed, or hopeless: not at all 3. Trouble falling or staying asleep, or sleeping too much: not at all 4. Feeling tired or having little energy: not at all 5. Poor appetite or overeating: not at all 6. Feeling bad about yourself - or that you are a failure or have let yourself or your family down: not at all 7. Trouble concentrating on things, such as reading the newspaper or watching television: not at all 8. Moving or speaking so slowly that other people could have noticed. Or the opposite - being so fidgety or restless that you have been moving around a lot more than usual: not at all 9. Thoughts that you would be better off or of hurting yourself in some way: not at all Total score: 0 Depression Screening Interpretation: Negative Depression Screening Done: Yes 48411 - PHQ-9 Billing: Yes Source: Developed by Drs. Góemz Alcaraz, Vee Keller, Felipe Hartman and colleagues, with an educational peter from [employer]. Thrive Questionnaire Date Thrive assessed: 09/01/24 I am a: Patient What is your living situation today?: I have a steady place to live Within the past 12 months, did the food you bought not last and you didn't have the money to get more?: Never true Within the past 12 months, did you worry whether your food would run out before you got money to buy more?: Never true Do you have trouble paying for medicines?: No Do you have trouble getting transportation to medical appointments?: No Do you have trouble paying your heating and electricity bill?: No Do you have trouble taking care of your child, family member or friend?: No Do you have trouble with day-to-day activities such as bathing, preparing meals, shopping, managing finances, etc.?: No Are you currently unemployed and looking for a job?: No Are you interested in more education?: No Please select the resources that you would like help with: None Currently or been in a relationship where the following occur: No concerns reported THRIVE Score: 0 AUDIT C Alcohol Use Questionnaire (AUDIT-C) 1. How often do you have a drink containing alcohol?: Monthly or less 2. How many drinks containing alcohol do you have on a typical day when you are drinking?: 1 or 2 3. How often do you have six or more drinks on one occasion?: Never Total Score: 1 Score Reviewed/Action Taken: No JEROMY-7 AMB Questionnaire JEROMY-7 Date JEROMY - 7 assessed: 09/03/24 Feeling nervous, anxious, or on edge: 0 = Not at all Not being able to stop or control worryin = Not at all Worrying too much about different things: 0 = Not at all Trouble relaxin = Not at all Being so restless that it is hard to sit still: 0 = Not at all Becoming easily annoyed or irritable: 0 = Not at all Feeling afraid as if something awful might happen: 0 = Not at all Total JEROMY-7 score (0-4 normal; 5-9 mild; 10-14 moderate; 15-21 severe): 0 Source: Developed by Drs. Gómez Alcaraz, Vee Keller, Felipe Hartman and colleagues, with an educational peter from [employer]. JEROMY-7 Assessment Billing JEROMY-7 Assessment Tool: JEROMY-7 Assessment 85663 Review of Systems Const All systems reviewed & are unremarkable except as noted in HPI and below Card Denies chest pain at rest, Denies chest pain with activity, Denies edema, Denies irregular heart rhythm, Denies claudication, Denies dyspnea, Denies dyspnea on exertion, Denies orthopnea, Denies paroxysmal nocturnal dyspnea and Denies slow heart rate Resp Denies cough, Denies dyspnea and Denies dyspnea on exertion GI Denies abdominal pain, Denies change in bowel habits, Denies excessive flatus, Denies nausea and Denies vomiting Neuro Denies lack of coordination Physical exam (Primary Care) Vital Signs: Last Vital Signs BP 112/78 09/03/24 13:34 BMI result Body Mass Index 20.0 Tobacco/Smoking Status: Tobacco use Status Tobacco use date assessed 09/03/24 09/03/24 13:39 Patient Tobacco Use Status Never used Tobacco 09/03/24 13:39 e-Cigarette/Vaping Use Never Used 09/03/24 13:39 PHQ-9: PHQ-9 Score PHQ-9: Total score 0 09/03/24 13:39 Depression Screening Interpretation: Negative Thrive Assessment: Date of Thrive Assessment Date Thrive assessed 09/01/24 09/03/24 13:39 Currently or been in a relationship where the following occur: No concerns reported HENTN Head: Yes normal to inspection, Yes normocephalic and Yes atraumatic Ears: external ears normal Eyes General: appearance normal, both eyes and all related structures Eyelids: Yes eyelids normal Conjunctivae: conjunctivae normal Neck Neck: Yes normal visual inspection and Yes supple Resp Effort & Inspection: normal respiratory effort Auscultation: clear to auscultation bilaterally Cardio Jugular venous distension: no JVD Rate: regular rate Rhythm: regular rhythm Heart sounds: S1 normal heart sound present and S2 normal heart sound present GI Inspection: Yes normal to inspection Palpation (GI): Soft to palpation and nontender Auscultation: normal bowel sounds Skin General skin exam: no rashes or lesions noted Neuro General: no focal motor deficits Extrem General: Yes full ROM Psych Appearance: grossly normal Coding Level of Care Code Est Pt Level 3 (11746) Est Pt Prev Care 18-39y(77120) Diagnoses Physical exam Z00.00 Mild recurrent major depression F33.0 Polyarthralgia M25.50 Additional Codes PHQ-9 - 37254 - PHQ-9 Billing: Yes ([id number]) JEROMY-7 Assessment Billing - JEROMY-7 Assessment Tool: JEROMY-7 Assessment 53292 ([id number]) Time Spent (min) 33 Assessment & Plan Assessment & Plan (1) Physical exam: Code(s): Z00.00 - Encounter for general adult medical examination without abnormal findings Category: Medical (2) Mild recurrent major depression: Code(s): F33.0 - Major depressive disorder, recurrent, mild Category: Medical (3) Polyarthralgia: Code(s): M25.50 - Pain in unspecified joint Category: Medical Plan The visit included a comprehensive assessment for the annual physical examination and the potential diagnosis of Clayton-Danlos Syndrome. I referred the patient to rheumatology for specialized evaluation, with preliminary blood work scheduled to assist in diagnosis. An inhaler refill is provided for symptomatic management, and guidance regarding vaccine schedules is reinforced. The patient is advised to maintain bee avoidance due to allergic reactions. The management of anxiety with Sertraline is steady, with regular psychiatric monitoring in place. Patient was informed and verbally consented to the use of an ambient scribe for clinic note documentation during this visit. I discussed with the patient her current health status during the annual p hysical exam, noting the maintenance of vaccination schedules and the management of anxiety. The possibility of Clayton-Danlos Syndrome prompted a referral to rheumatology, with the necessity of preliminary diagnostic tests outlined. Consent for rheumatological evaluation at [place] was obtained, emphasizing its thoroughness. Based on the patient's request, I authorized a refill for her inhaler. Future follow-up will depend on the outcome of the rheumatology consultation, and I reassured the patient about the importance of setting consistent health maintenance schedules. Orders: Orders CHANTEL Reflex Titer and Pattern Today M25.50 - Pain in unspecified joint Cyclic Citrullinated Peptide Today M25.50 - Pain in unspecified joint Complete Blood Count Auto Diff Today M25.50 - Pain in unspecified joint Comprehensive [place]. Panel Fast Today Z00.00 - Encounter for general adult medical examination without abnormal findings Lipid Panel Today Z00.00 - Encounter for general adult medical examination without abnormal findings Vitamin D 25-OH Total Today E55.9 - Vitamin D deficiency, unspecified, R79.89 - Other specified abnormal findings of blood chemistry Rheumatoid Factor Today M25.50 - Pain in unspecified joint Anti DNA DS Antibody Today M25.50 - Pain in unspecified joint Scleroderma 70 Antibody Today M25.50 - Pain in unspecified joint Erythrocyte Sedimentation Rate Today M25.50 - Pain in unspecified joint C Reactive Protein Today M25.50 - Pain in unspecified joint Referrals Rheumatology Referral M25.50 - Pain in unspecified joint Medications: Refilled Ventolin HFA 90 mcg/actuation (albuterol sulfate) 2 puffs inhalation Q6H 30 days PRN 8 grams 0RF shortness of breath or wheezing NS Patient Instructions: - Schedule and complete blood work within three months at the recommended lab. - Follow up with rheumatology in [place] for a detailed evaluation of potential Clayton-Danlos Syndrome. - Utilize the inhaler refill as needed for symptomatic relief. - Follow the child's Tdap vaccination schedule, with the next dose planned for 2023. - Continue to support immune development. - Avoid exposure to bees due to allergy. - Contact your psychiatrist for continuing anxiety management and medication oversight. - Abstain from alcohol and tobacco use.
[2024-09-03 13:34] VITALS: BP 112/78
== END 2024-09-03 14:01 | disposition home or self-care (01) ==
LOC: HO.HMCH 13:29
PROVIDERS: PCP Internal Medicine; Visit Provider Internal Medicine
DX: Z00.00 Encounter for general adult medical examination without abnormal findings (principal); F33.0 Major depressive disorder, recurrent, mild; M25.50 Pain in unspecified joint

== ENCOUNTER → 2024-09-03 13:28 | Outpatient (BNVA) | payer OTHER, SELFPAY | PROVIDERS: PCP Internal Medicine; Visit Provider Internal Medicine | DX: Z00.00 Encounter for general adult medical examination without abnormal findings (principal); F33.0 Major depressive disorder, recurrent, mild; M25.50 Pain in unspecified joint | CPT/HCPCS: 96127 ==

== ENCOUNTER 2024-09-18 11:18 | Outpatient (REF) | payer OTHER, SELFPAY ==
[2024-09-18 11:40] LABS: MANUAL DIFF FLAG NO
[2024-09-18 12:06] LABS: Basophils Percent Auto 0.6 % (0-2); Eosinophils Absolute Auto 0.1 X10*3/uL (0.0-0.4); Eosinophils Percent Auto 1.8 % (0-4); Hematocrit 37.9 % (37.0-47.0); Hemoglobin 12.5 g/dl (12.0-16.0); Imm Gran Abs Auto 0.01 X10*3/uL (0.00-0.03); Imm Gran Pct Auto 0.3 % (0.0-0.4); Lymphocytes Absolute Auto 1.5 X10*3/uL (1.2-4.9); Lymphocytes Percent Auto 44.5 % (20-40); Mean Corpuscular Hemoglobin 28.7 pg (27.0-33.0); Mean Corpuscular Volume 87.1 fL (80.0-98.0); Monocytes Absolute Auto 0.3 X10*3/uL (0.1-1.2); Monocytes Percent Auto 8.6 % (2-11); Neutrophils Absolute Auto 1.5 x10*3/uL (2.0-8.3); Neutrophils Percent Auto 44.2 % (45-73); Platelet Count 229 X10*3/uL (160-400); Red Blood Count 4.35 X10*6/uL (4.20-5.50); Red Cell Distribution Width 12.2 % (11.0-16.0); White Blood Count 3.4 X10*3/uL (4.8-10.8)
[2024-09-18 12:43] LABS: Erythrocyte Sedimentation Rate 7 MM/HR (0-20)
[2024-09-18 12:48] LABS: Alanine Aminotransferase 34 U/L (0-31); Albumin Level 4.4 g/dL (3.5-5.0); Anion Gap 11 (12-20); Aspartate Amino Transferase 28 U/L (5-31); Bilirubin Total 0.4 mg/dL (0.0-1.0); Blood Urea Nitrogen 19 mg/dL (9-16); C Reactive Protein < 0.10 mg/dL (< or = 0.50); Calcium 9.3 mg/dL (8.4-10.2); Carbon Dioxide 26 mmol/L (22-29); Chloride 109 mmol/L (96-108); Cholesterol 169 mg/dL (<200); Estimated Glomerular Filt Rate > 60; Glucose Fasting 76 mg/dL (60-99); HDL Cholesterol 67 mg/dL (>40); LDL Cholesterol Calculated 94 mg/dL (<100); Rheumatoid Factor < 13.0 IU/mL (<15.0); Sodium 142 mmol/L (135-145); Total Protein 7.1 g/dL (6.5-8.0); Triglycerides 43 mg/dL (<150)
[2024-09-18 12:54] LABS: Alkaline Phosphatase 72 U/L (39-117); Vitamin D 25-OH Total 23.5 ng/mL (>30)
[2024-09-19 22:33] LABS: Anti DNA DS Antibody <1 IU/mL; Scleroderma 70 Antibody <1.0 NEG AI (<1.0 NEG)
[2024-09-21 14:13] LABS: Anti Nuclear Antibody Screen NEGATIVE (NEGATIVE)
[2024-09-22 20:15] LABS: Cyclic Citrullinated Peptide <16 UNITS
== END 2024-09-18 11:19 | disposition home or self-care (01) ==
LOC: HO.LAB 11:18
PROVIDERS: PCP Internal Medicine; Visit Provider Internal Medicine
DX: M25.50 Pain in unspecified joint (principal); Z00.00 Encounter for general adult medical examination without abnormal findings; E55.9 Vitamin D deficiency, unspecified; R79.89 Other specified abnormal findings of blood chemistry
CPT/HCPCS: 36415; 80053; 80061; 82306; 85025; 85652; 86038; 86140; 86200; 86225; 86235; 86431

== ENCOUNTER 2025-04-01 16:27 | Outpatient (AMB) | payer OTHER, SELFPAY ==
[2025-04-01 16:35] VITALS: BP 102/68; PULSE 89; RESP 18; O2SAT 98; BMI 20.8
--- NOTE | 2025-04-01 16:35 | MHC.PC.OV ---
Vital Signs 04/01/25 16:35 Height 5 ft 5 in Weight 125 lb BMI 20.8 BP 102/68 Blood Pressure Location Lt brachial Position Sitting Respiration 18 Pulse 89 Pulse Source Pulse Oximeter Temp Source Temporal Artery Scan Pulse Oximetry (%) 98 Oxygen Delivery Method Room Air Intake Visit Reasons: Persistent headache 2 weeks Clinical Documentation Developer Required: No Accompanied by: Self / Same As Patient Allergies sulfamethoxazole (From Bactrim) Allergy (Severe, Verified 04/01/25 16:41) Swelling trimethoprim (From Bactrim) Allergy (Severe, Verified 04/01/25 16:41) Swelling bees Allergy (Intermediate, Uncoded 09/03/24 13:32) dizziness, vomiting, headaches Tobacco use date assessed: 04/01/25 Dental Screening Dental Screen Date: 04/01/25 Did you have a dental visit in the last 12 months?: Yes Did you have a dental problem in the last 6 months where you did not have access to dental care?: No Was dental information given to patient?: Patient has dentist HPI HPI Comments History of Present Illness Details Patient is a 29-year-old female presenting with complaints of headache. Headaches started 2 weeks ago without particular precipitating event, it typically starts with tension headache in bilateral frontal head, and gradually worsens becomes throbbing like, associated with nausea, photophobia and phonophobia, sometimes with blurred vision. Had an emesis episode with a migraine once over the past 2 weeks. No vision changes or blurred vision present without headache. Denies any numbness, tingling, or weaknesses. Has been using Excedrin daily but not effective. Denies history of migraines in the past. 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 She reports she has been doing this for years and tolerates it well. No new stressors or changes in lifestyle. Reports she is sleeping well and eating healthy for the most part. Denies consuming too much caffeine, chocolate or cheese. [facility]LY [facility] Medical History Median arcuate ligament syndrome Celiac axis compression syndrome Chronic diarrhea JEROMY (generalized anxiety disorder) Mild recurrent major depression ADHD Surgical History H/O vascular surgery Hx of colonoscopy History of esophagogastroduodenoscopy (EGD) History of wisdom tooth extraction Family History Mother Breast cancer Hypertension Cataract Anxiety Father Hypertension ADHD Family/Other Substance use disorder Mental health disorder Social History Housing: House Alcohol intake: former Patient Tobacco Use Status: Never used Tobacco e-Cigarette/Vaping Use: Never Used Second Hand Smoke Exposure: No service: No Current occupational status: employed Current occupational exposures/hazards: No Cognitive needs: No Hearing needs: No Vision needs: Yes Questionnaire Thrive Questionnaire Date Thrive assessed: 09/01/24 I am a: Patient What is your living situation today?: I have a steady place to live Within the past 12 months, did the food you bought not last and you didn't have the money to get more?: Never true Within the past 12 months, did you worry whether your food would run out before you got money to buy more?: Never true Do you have trouble paying for medicines?: No Do you have trouble getting transportation to medical appointments?: No Do you have trouble paying your heating and electricity bill?: No Do you have trouble taking care of your child, family member or friend?: No Do you have trouble with day-to-day activities such as bathing, preparing meals, shopping, managing finances, etc.?: No Are you currently unemployed and looking for a job?: No Are you interested in more education?: No Please select the resources that you would like help with: None Currently or been in a relationship where the following occur: No concerns reported THRIVE Score: 0 JEROMY-7 AMB Questionnaire JEROMY-7 Date JEROMY - 7 assessed: 09/03/24 Source: Developed by Drs. Gómez Alcaraz, Vee Keller, Felipe Hartman and colleagues, with an educational peter from [employer]. Review of Systems Narrative As per HPI Physical exam (Primary Care) Vital Signs: Last Vital Signs Pulse 89 04/01/25 16:35 Resp 18 04/01/25 16:35 BP 102/68 04/01/25 16:35 Pulse Ox 98 04/01/25 16:35 Oxygen Delivery Method Room Air 04/01/25 16:35 General: Well-appearing, alert, oriented ?3, in mild distress due to headache HEENT: Normocephalic, atraumatic, PERRLA, EOMI, no scleral icterus. Neurologic: Alert and oriented X3, cranial nerves II?XII grossly intact, sensation and strength intact in bilateral lower and upper extremities. BMI result Body Mass Index 20.8 Tobacco/Smoking Status: Tobacco use Status Tobacco use date assessed 04/01/25 04/01/25 16:45 Patient Tobacco Use Status Never used Tobacco 04/01/25 16:45 e-Cigarette/Vaping Use Never Used 04/01/25 16:45 Thrive Assessment: Date of Thrive Assessment Date Thrive assessed 09/01/24 04/01/25 16:45 Currently or been in a relationship where the following occur: No concerns reported Coding Level of Care Code Est Pt Level 3 (12680) Diagnoses Migraine headache G43.909 Assessment & Plan Assessment & Plan (1) Migraine headache: Code(s): G43.909 - Migraine, unspecified, not intractable, without status migrainosus Category: Medical Plan: Patient presenting with migraine headaches associated with nausea, photophobia and phonophobia. Uses Excedrin every day without relief. -patient advised to keep a headache diary -try sumatriptan 50 mg Q 2-4 hours p.r.n. headache for a maximum of 200 mg in 24 hours -stop Excedrin use as overuse may aggravate headaches -patient counseled on possible triggers for migraines and provided with educational material. -follow up in 2-4 weeks, if no improvement or worsening, preventive therapy may be considered Medications: New sumatriptan succinate do not exceed 4 doses per 24 hrs 50 mg PO Q2-4H PRN 30 tabs 0RF migraine headache
--- OUTSIDE RECORDS SUMMARY | 2025-04-01 20:13 | XMS_ITS | Encounter Summary ---
Author Organization [facility] Address [address] [place] [phone] Phone Care Team Providers Care French Teacher Name Role Phone Chantel Hagan MD Primary Care Provid er Encounter Details Date Type Department Care Team (Late st Contact Info) Description 10/30/2024 Procedure Pass [facility] [address] [place] [address] Social History Tobacco Use Types Packs/Day Years Used Date Smoking Tobacco: Never Passive Smoke Exposure: Never Smokeless Tobacco: Never Alcohol Use Standard Drinks/Week Comments Not Currently 1 (1 standard drink = 0.6 oz pur e alcohol) monthly Education Answer Date Recorded Are you interested in more education? Not on arley e 09/29/2022 Are you concerned about learning? Not on file 09/29/2022 No 09/29/2022 No 09/29/2022 Food Answer Date Recorded Within the past 6 months we worried whether our food would run out before we got money to buy more. Never True 12/15/2023 Within the past 6 months the food we bought just didn't last and we didn't have enough money to get more. Never True Residential Stability Answer Date Recor ded What is your housing situation today? I have kwadwo sing 12/15/2023 How many times have you move d in the past 12 months? Zero (I did not move) 12/15/2023 Paying for Meds Answer Date Recorded Do you have trouble paying for medicines? No 12/15/2023 Paying Utility Bills Answer Date Record ed Do you have trouble paying your heating or elect ricity bill? No 12/15/2023 Transportation Answer Date Recorded Has the lack of transportati on kept you from medical appointments or from getting medications? No 12/15/2023 Digital Access Answer Date Recorded No 12/15/2023 Yes 12/15/2023 Do you have reliable internet access at home? Ye s 12/15/2023 Do you have a device (e.g., phone, tablet, computer) with a working camera? Yes 12/15/2023 Intimate Partner Violence Answer Date R ecorded Are you denied basic needs s uch as food, clothing, or medical care? No 12/15/2023 In the past 12 months have y ou been in a relationship with a person who hurts, threatens, or tries to control you? No 12/15/2023 Are you denied basic needs s uch as food, clothing, or medical care? No 12/15/2023 In the past 12 months have y ou been in a relationship with a person who hurts, threatens, or tries to control you? 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[employer] Not on file Not on file Not on file documented as of this encounter Plan of Treatment Upcoming Encounters Date Type Department Care Team (Late st Contact Info) Description 04/14/2025 2:00 PM EST Office Visit [facility] [place] [address] [place] [address] Vera Stewart MD, PhD [address] [place] [phone] 02/10/2026 10:10 AM EDT Office Visit [facility] Rheumatology [address] [place] [address] Evonne Mckeon MD, MPH [address] [facility], [address] [place] [address] [email or web address] documented as of this encounter Visit Diagnoses Not on filedocumented in this encounter Care Teams French Teacher Relationship Specialty Start Date End Date Chantel Hagan MD [address] [place] [phone] PCP - General Internal Medicine 03/20/22 documented as of this encounter Additional Source Comments The information contained in this document represents components of the legal health record. It is not the complete legal health record.[facility]
--- OUTSIDE RECORDS SUMMARY | 2025-04-01 20:13 | XMS_ITS | Encounter Summary ---
Author Organization [facility] Address [address] [place] [address] Phone Care Team Providers Care Content Curator Name Role Phone Chantel Hagan MD Primary Care Provid er Encounter Details Date Type Department Care Team (Late st Contact Info) Description 04/04/2022 Procedure Pass [facility] [address] [place] [address] Social History Tobacco Use Types Packs/Day Years Used Date Smoking Tobacco: Never Smokeless Tobacco: Never Alcohol Use Standard Drinks/Week Comments Yes 1 (1 standard drink = 0.6 oz pur e alcohol) monthly Comments No Sex and Gender Information Value Date Recorded Sex Assigned at Female 07/27/2017 10:46 PM EST Legal Sex Female 10:41 PM EST Gender Identity Female 07/27/2017 10:46 PM EST Sexual Orientation Straight 07/27/2017 10 :46 PM EST documented as of this encounter Plan of Treatment Upcoming Encounters Date Type Department Care Team (Late st Contact Info) Description 04/14/2025 2:00 PM EST Office Visit [facility] Main [place] [address] [place] [address] Vera Stewart MD, PhD [address] [facility] [address] [place] [address] 02/10/2026 10:10 AM EDT Office Visit [facility] Rheumatology [address] [place] [address] Evonne Mckeon MD, MPH [address] [facility], [address] [place] [address] [email or web address] documented as of this encounter Visit Diagnoses Not on filedocumented in this encounter Care Teams Content Curator Relationship Specialty Start Date End Date Chantel Hagan MD [address] [place] [address] PCP - General Internal Medicine 03/20/22 documented as of this encounter Additional Source Comments The information contained in this document represents components of the legal health record. It is not the complete legal health record.[facility]
--- OUTSIDE RECORDS SUMMARY | 2025-04-01 20:13 | XMS_ITS | Encounter Summary ---
Author Organization [facility] Address [address] [place] [address] Phone Care Team Providers Care Automatic Wheel Line Operator Name Role Phone Chantel Hagan MD Primary Care Provid er Reason for Referral * MRI/CAT Scan - Closed Specialty Diagnoses / Procedures Referred By Yamini mendoza Referred To Contact Radiology Diagnoses Median arcuate ligament syndrome Procedures CT Angio 3D Reconstruction Abdomen Mark Dang MD Phone: tel: fax: mailto:[email or web address] Referral ID Status Reason Start Date Expiration Date Visits Re quested Visits Authorized [id number] Closed 11/24/2022 1 1 Encounter Details Date Type Department Care Team (Late st Contact Info) Description 11/24/2022 Ancillary Orders [facility] [place] [facility] [address] [place] [address] Mark Dang MD [address] [place] [address] [email or web address] Median arcuate ligament syndrome Social History Tobacco Use Types Packs/Day Years Used Date Smoking Tobacco: Never Smokeless Tobacco: Never Alcohol Use Standard Drinks/Week Comments Yes 1 (1 standard drink = 0.6 oz pur e alcohol) monthly Education Answer Date Recorded Are you interested in more education? Not on arley e 09/29/2022 Are you concerned about learning? Not on file 09/29/2022 No 09/29/2022 No 09/29/2022 Digital Access Answer Date Recorded No 10/28/2022 No 10/28/2022 Reliable internet access at home? Not on file 10/28/2022 Device with a working camera? Not on file Comments No Sex and Gender Information Value [...] Description 04/14/2025 2:00 PM EST Office Visit [facility] Main [place] [address] [place] [address] Vera Stewart MD, PhD [address] [address] [email or web address] 02/10/2026 10:10 AM EDT Office Visit [facility] Rheumatology [address] [place] [address] Evonne Mckeon MD, MPH [address] [place] [address], [address] [place] [address] [email or web address] documented as of this encounter Results * CT Angio 3D Reconstruction Abdomen (11/24/2022 10:24 AM EDT) Anatomical Region Laterality Modality Abdomen Computed Tomogra phy 11/24/2022 11:4 1 AM EDT Impressions 11/24/2022 12:45 PM EDT Stable postoperative findings of median arcuate ligament release with aortoceliac bypass graft. No evidence of complication. ATTESTATION: Johan Borrego, as teaching physician have reviewed the images, if any, for this patient's exam, and if necessary, have edited the report originally created by Martín Vick. Narrative 11/24/2022 12:45 PM EDT Reason for exam (per EHR order): * AAA, surveillance; * Epigastric pain; Abd Pelvic CTA s/p aortoceliac bypass TECHNIQUE: CTA Abdomen and Pelvis Scans: Angiogram Oral contrast: None. IVCM: Administered 3D Post-processing: MIPS COMPARISON: CTA abdomen and pelvis 05/16/2022. FINDINGS: VASCULAR: Aorta: Normal. Celiac axis: Stable postoperative findings of median arcuate ligament release with aortoceliac bypass graft extending from the supraceliac aorta to the proximal splenic artery. The graft and [place] celiac axis are patent. Superior mesenteric artery: Normal. Right renal artery: Normal. Accessory right renal artery is patent. Left renal artery: Normal. Accessory left renal artery is patent. Inferior mesenteric artery: Normal. Right iliac: Normal Left iliac: Normal Lower Chest: Small hiatal hernia. No consolidation or pleural effusion. Liver: Normal. Biliary System: Normal. Pancreas: Normal. Spleen: Normal. Adrenal Glands: Normal. Kidneys: Normal. Bowel: Normal. Mesentery, Omentum, and Peritoneum: Normal. Pelvic Organs: Normal. Lymph Nodes: Normal. Bones and Soft Tissues: Postsurgical changes in the upper ventral abdominal wall. Unchanged subcentimeter left proximal femur bone island. No destructive osseous lesions. Small fat-containing umbilical hernia. Procedure Note Rodolfo Salinas MD - 11/24/2022 Reason for exam (per EHR order): * AAA, surveillance; * Epigastric pain;Abd Pelvic CTA s/p aortoceliac bypass TECHNIQUE: CTA Abdomen and Pelvis Scans: Angiogram Oral contrast: None. IVCM: Administered 3D Post-processing: MIPS COMPARISON: CTA abdomen and pelvis 05/16/2022. FINDINGS: VASCULAR: Aorta: Normal. Celiac axis: Stable postoperative findings of median arcuate ligamentrelease with aortoceliac bypass graft extending from the supraceliac aortato the proximal splenic artery. The graft and [place] celiac axis arepatent. Superior mesenteric artery: Normal. Right renal artery: Normal. Accessory right renal artery is patent. Left renal artery: Normal. Accessory left renal artery is patent. Inferior mesenteric artery: Normal. Right iliac: Normal Left iliac: Normal Lower Chest: Small hiatal hernia. No consolidation or pleural effusion. Liver: Normal. Biliary System: Normal. Pancreas: Normal. Spleen: Normal. Adrenal Glands: Normal. Kidneys: Normal. Bowel: Normal. Mesentery, Omentum, and Peritoneum: Normal. Pelvic Organs: Normal. Lymph Nodes: Normal. Bones and Soft Tissues: Postsurgical changes in the upper ventralabdominal wall. Unchanged subcentimeter left proximal femur bone island.No destructive osseous lesions. Small fat-containing umbilical hernia. IMPRESSION: Stable postoperative findings of median arcuate ligament release withaortoceliac bypass graft. No evidence of complication. ATTESTATION: Johan Borrego, as teaching physician have reviewed theimages, if any, for this patient's exam, and if necessary, have edited thereport originally created by Martín Vick. 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 It is not the complete legal health record.[facility]
--- OUTSIDE RECORDS SUMMARY | 2025-04-01 20:13 | XMS_ITS | Encounter Summary ---
Author Organization [facility] Address [address] [place] [address] [place] [phone] Phone Care Team Providers Care Truck Dispatcher Name Role Phone Chantel Hagan MD Primary Care Provid er Encounter Details Date Type Department Care Team (Late st Contact Info) Description 11/24/2022 Procedure Pass [facility] [address] [place] [address] Social History Tobacco Use Types Packs/Day Years [...] Description 04/14/2025 2:00 PM EST Office Visit [facility] Main [place] [address] [place] [address] Vera Stewart MD, PhD [address] [place] [address] [email or web address] 02/10/2026 10:10 AM EDT Office Visit [facility] Rheumatology [address] [place] [address] Evonne Mckeon MD, MPH [address] [facility], [address] [place] [address] [email or web address] documented as of this encounter Visit Diagnoses Not on filedocumented in this encounter Care Teams Truck Dispatcher Relationship Specialty Start Date End Date Chantel Hagan MD [address] [place] [address] PCP - General Internal Medicine 03/20/22 documented as of this encounter Additional Source Comments The information contained in this document represents components of the legal health record. It is not the complete legal health record.[facility]
--- OUTSIDE RECORDS SUMMARY | 2025-04-01 20:13 | XMS_ITS | Clinical Summary ---
Author Organization [facility] Address [facility] [employer] [address] [address] Phone Care Team Providers Care Stoker Erector And Servicer Name Role Phone Chantel Hagan MD Primary Care Provid er Allergies Active Allergy Reactions Criticality Noted Date Comments Bee Pollen Swelling,Nausea and/or Vomiting Low 09/03 Medications albuterol 90 mcg/actuation inhaler Inhale 2 puffs into the lungs every 4 (four) hours as needed. Active estradioL (ESTRACE) 0.01 % (0.1 mg/gram) vaginal creamIndication s:Vulvovaginal dryness Insert 1g vaginally and apply 0.5 grams to vulva nightly for 14 days then twice weekly 42.5 g 1 Active Hospital, Clinic, or Other Facility Administered Medication Ordered Dose Route Frequency Start Date End Date Status etonogestreL (NEXPLANON) subdermal implant 68 mgIndications:Nexplanon insertion 68 mg IDrm Every 3 years 01/09/2024 Active Active Problems Problem Noted Date Diagnosed Date History of depression 05/08/2023 Overview (05/08/2023): Patient taking 20 mg of Lexapro daily. Sees a therapist bi-weekly and a psychiatrist monthly. Assessment & Plan (10/05/2023 2:13 PM EDT): Patient doing well. Denies VB, LOF, DFM, ctx. Third trimester labs within normal limits. Warning signs/symptoms reviewed. Assessment & Plan (06/06/2023 2:30 PM EST): Answered questions re: risk of PP depression. Agree with continuation of Lexapro. Asthma 05/08/2023 Overview (05/08/2023): Exercise induced. Patient has albuterol inhaler prn wheezing/SOB. 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 Pt was on Xarelto, d/c in . Sees Dr. Mcdowell at [facility] Vascular Surgery. Resolved Problems Problem Noted Date Diagnosed Date Resolved Date Normal intrauterine , antepartum 12/15/2023 01/09/2024 Poor growth affecting management of mother in third trimester 12/03/2023 01/09/2024 Overview (12/03/2023): growth Restriction (FGR) - diagnosed by EFW or AC <10%ile. Severe FGR is EFW <3%ile surveillance - twice weekly BPP (with dopplers) OR BPP (with dopplers) + NST q week starting at time of diagnosis. Deliver 38-39 wks EFW <10%ile and normal testing Delivery 37 weeks if EFW < 3%ile, or abnormal testing See AJOG 2020 article for details of surveillance and management of severe FGR and abnormal testing https://www.ajog.org/action/showPdf?rmh=[email or web address]%2820%2347082-3 PER ARTICLE - delivery at 38-39wks SGA (small for gestational age) 11/30/2023 01/09/2024 Overview (12/07/2023): The AC is at the 34th percentile. HC was < 2nd percentile. Assessment & Plan (12/14/2023 3:04 PM EDT): At the time of her last visit, the fetus was determined not to be growth restricted. Therefore, will proceed with routine care. Assessment & Plan (12/07/2023 10:39 AM EDT): The overall EFW is at the 38th percentile. The AC was at the 34th percentile. The HC was less than the 2nd percentile. Therefore, the fetus is not at risk for growth restriction at the present time. Assessment & Plan (11/30/2023 11:09 AM EDT): She is measuring S<D. Will check an ultrasound with next visit. Abdominal pain during pregna ncy in third trimester 11/14/2023 01/09/2024 Overview (11/16/2023): Seen in ED on 11/12 - RUQ wnl, no cholelithiasis or cholecystitis Has improved with low fat diet Assessment & Plan (11/14/2023 2:21 PM EDT): GERD and vomiting started last at work. Later that day got right side flank pain Ache conitnued till Sunday, radiating to front, went to [facility] ED - was told it was GERD. For two days (Sunday and Sunday) was better and Sunday pain RUQ started again, vomited today, unable to keep down zofran or toast. Had chicken soup when it started. Another fatty meal on Sunday, and a roast on Sunday. Slight RUQ tenderness, no CVAT on either side. No urinary symptoms Sending to L&D for eval - thinking gallstones - will need repeat labs and RUQ sono Keep 11/15 appointment Low lying placenta nos or wi thout hemorrhage, third trimester 08/17/2023 01/09/2024 Overview (11/16/2023): Low lying again at 28 wks Repeat US scheduled Resolved 11/15 - greater than 2.0cm away Assessment & Plan (11/14/2023 1:46 PM EDT): Has repeat scheduled for 11/16/2023 Assessment & Plan (11/02/2023 11:12 AM EDT): Will schedule f/u US between 34-36 wks. Assessment & Plan (10/05/2023 2:12 PM EDT): Patient had follow up US today for low lying placenta Placenta 1.38 to 1.43 cm from cervix Pending final read, patient a candidate for trial of labor Will repeat US at 34 weeks, order has been placed Assessment & Plan (09/12/2023 11:08 AM EDT): Plan on repeat ultrasound at 28 weeks which has already been scheduled. 20 weeks gestation of 08/13/2023 11/02/2023 Assessment & Plan (08/13/2023 9:27 AM EDT): Patient doing well. Denies VB, LOF, ctx. Starting to feel movement. Patient with heartburn, taking Famotidine and Tums. Recommended Mylanta, reviewed dietary changes. Anatomy US ordered. msAFP ordered. Warning signs/symptoms reviewed. Rubella non-immune status, antepartum 06/08/2023 01/09/2024 Overview (06/08/2023): Rubella equivocal Rec vaccination PP Depressive disorder 05/08/2023 06/06/19 Overview (05/08/2023): Patient taking 20 mg of Lexapro daily. Sees a therapist bi-weekly and a psychiatrist monthly. Encounter for supervision of normal first in third trimester 05/08/2023 01/10/2024 Overview (11/02/2023): (Dr. Mccann) OB-CMI score: 1 [05/08/2023] Group PN care? Discussed 06/05/23 screening: cffDNA 46xx, neg carrier status testing Baby ASA? N/a Rh positive GC/Chlam neg PAP 2021 Flu 03/2023 COVID-19 vaccinated x2 Hgb 11.1 GTT 91 Repeat RPR neg Tdap done EPDS * PPBC * GBS * Feeding Plan * Assessment & Plan (12/14/2023 3:01 PM EDT): She notes good movement. Denies any vaginal bleeding, leakage fluid, or regular tractions. Overall, she is doing well and has no acute complaints. Assessment & Plan (12/07/2023 10:34 AM EDT): She notes good movement. She denies any LOF, regular contractions or bleeding. Overall, she is feeling well. Assessment & Plan (11/30/2023 10:51 AM EDT): She notes good movement. She denies any vaginal bleeding, leakage of fluid, or regular contractions. Overall, she is doing well. Assessment & Plan (11/14/2023 1:47 PM EDT): S=d, repeat RUQ pain x 1 weeks - went to [facility] ED for pain, n/v - was hydrated, amylase apparently elevated, was given Zofran, records not available at this time but patient reports no imaging done Assessment & Plan (11/02/2023 11:13 AM EDT): +FM, no ctx/LOF/VB. Plans to work until delivery. Pedi: NAP. CBE: declines. Assessment & Plan (09/12/2023 11:25 AM EDT): She is only feeling the baby move intermittently. When listening with the Doppler today, multiple movements were heard and/or felt over 1-2 minutes. She denies any vaginal bleeding, leakage of fluid, or regular contractions. Overall, she is doing well. CBC, Glucola, and repeat RPR ordered. Assessment & Plan (07/23/2023 1:39 PM EST): Chelsea is a 28 y.o. at 14w4d states she feels well today. Denies any concerns at this time. Denies any LOF/Vaginal bleeding/Ucs. Unsure if she has felt FM -Discussed FM at this GA and when to expect more reg FM. Advised on what FM might feel like at this GA -Review signs and symptoms of warning/Pre-term Labor and when/how to contact midwives -Anatomy scan at 20 wks. Has one more appointment prior to anatomy scan. Advised that our OBs review all US and might make further recommendations -NV in 4 weeks Assessment & Plan (06/06/2023 2:31 PM EST): US today shows fetus with S=D. LLQ pain 11/18/2019 06/13/2022 Assessment & Plan (11/18/2019 3:56 PM EDT): Unclear etiology of LLQ. Examination reveals mild to moderate discomfort with deep palpation. Unable to appreciate mass or ovary. No tenderness over uterus. Bowel etiology possible as well. Discussed increased risk of benign ovarian cyst formation with progestin only contraceptive methods. If that ends up being the etiology use of cyclic combination OCP for a couple months will usually aid in resolution. Plan pelvic ultrasound. Plan follow-up with PCP if no WOOD FUEL PELLETIZER etiology identified. Immunizations Immunization Administration Dates Next Due Hepatitis B Adult 10/09/2016,06/01/2016,04/20/20 16 Influenza Quadrivalent MDCK w/Preservative IM 03/19/2019 Influenza Quadrivalent Preservative Free IM 09/2022,03/29/2017 MMR 12/17/2023 Tdap 10/18/2023 Family History Medical History Relation Comments Bipolar disorder Brother Anxiety disorder Father Depression Father Hypertension Father Heart disease Maternal Grandfather Anxiety disorder Mother Breast cancer Mother 2016 Cataracts Mother Depression Mother Hypertension Mother Cataracts Paternal Grandfather Heart attack Paternal Grandfather Heart disease Paternal Grandfather Breast cancer Paternal Grandmother Relation Status Comments Brother Alive Father Alive Maternal Grandfather Maternal Grandmother Mother Alive Paternal Grandfather Paternal Grandmother Social History Tobacco Use Types Packs/Day Years Used Date Smoking Tobacco: Never Passive Smoke Exposure: Never Smokeless Tobacco: Never Tobacco Cessation:Counseling Given: Not Answered Alcohol Use Standard Drinks/Week Comments Not Currently [...] 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 Not on file Not on file Last Filed Vital Signs Vital Sign Reading Time Taken Comments Blood Pressure 108/60 12/08/2024 2:09 PM EDT Pulse 69 11/21/2024 10:31 AM EDT Temperature 36.5 C (97.7 F) 12/18/2023 8:18 AM EDT Respiratory Rate 18 12/18/2023 8:18 AM EDT Oxygen Saturation 97% 12/18/2023 8:18 AM EDT Inhaled Oxygen Concentration - - Weight 55.9 kg (123 lb 3.2 oz) 12/08/2024 2:09 P M EDT Height 165.1 cm (5' 5 ) 12/08/2024 2:09 PM EDT Body Mass Index 20.5 12/08/2024 2:09 PM EDT Plan of Treatment Upcoming Encounters Date Type Department Care Team (Late st Contact Info) Description 04/14/2025 2:00 PM EST Office Visit [facility] [address] [place] [address] Vera Stewart MD, PhD [address] [address] [email or web address] 02/10/2026 10:10 AM EDT Office Visit [facility] Rheumatology [address] [place] [address] Evonne Mckeon MD, MPH [address] [facility], [address] [place] [address] [email or web address] Health Maintenance Due Date Last Done Comments DEPRESSION SCREENING 2005 PNEUMOCOCCAL VACCINES (0-49 years) (1 of 2 - PCV) 2012 PAP SMEAR 09/26/2024 09/26/2021 INFLUENZA VACCINE (#1) 2025 , 03/07/2023, 03/19/2019, Additional history exists COVID-19 VACCINE ( - 2024- season) 2025 Contraceptive Implant 01/08/2027 01/09/2024, 023 Adult Td,Tdap Booster 10/17/2033 10/18/2023 HEPATITIS C SCREENING Completed 06/05/2023 HIV ONE-TIME SCREENING (18-65 YEARS) Completed 06/05/2023 SMOKING STATUS SCREENING (Once After 26 Yrs) Completed 12/08/2024 HEPATITIS A VACCINES Aged Out No long er eligible based on patient's age to complete this topic HIB VACCINES Aged Out No longer eligi ble based on patient's age to complete this topic MENINGOCOCCAL VACCINES (ACWY) Aged Out No longer eligible based on patient's age to complete this topic MENINGOCOCCAL VACCINES (B) Aged Out N o longer eligible based on patient's age to complete this topic Medical Devices Implanted Type Area Furniture Mover Device Identifier Shelf Expiration Date Model / Serial / Lot Graft Vascular [id number] Propaten Configuration Stretch Thin Walled Removable Ringed - [id number] Implanted:Qty: 1 on 03/22/2022 by Mark Dang MD at [facility] STANDARD N/A: Aorta [employer] [id number] / [id number] / Procedures Procedure Name Priority Date/Time Associated Diagnosis Comments HEPATITIS C ANTIBODY, QUALITATIVE Routine 06/05/2023 3:17 PM EST Need for hepatitis C screening test PAP TEST Routine 09/26/2021 12:00 AM EDT from Last 3 Months or Most Recently Relevant to Health Maintenance Results * Hepatitis C antibody, qualitative (06/05/2023 3:17 PM EST) HCV NON-REACTIV E NON-REACTI VE [facility] Blood 06/05/2023 3:17 PM EST 06/05/2023 3:21 PM EST us Marina Mccann MD LAB BLOOD ORDERABLES Final Re sult [facility] [address] [place] [address] * Pap Smear (09/26/2021 12:00 AM EDT) 09/26/2021 09/27/2021 10: 16 AM EDT Narrative SEE NARRATIVE - 09/30/2021 11:28 AM EDT [address] [address] Ski Guide: Jolene Hernandez MD WOOD FUEL PELLETIZER Cytology Report FINAL DIAGNOSIS A. PAP SMEAR (SUREPATH) CE: SPECIMEN ADEQUACY: Satisfactory for evaluation; transformation zone present. Evaluation limited by thickness of cellular specimen. INTERPRETATION: NEGATIVE FOR INTRAEPITHELIAL LESION OR MALIGNANCY. Electronically Signed Out By: TREY Thorpe(ASCP) The Pap test is a screening test primarily for squamous cancers and precursors and has associated false-negative and false-positive results. New technologies such as liquid-based preparations may decrease but will not eliminate all false-negative results. Regular sampling and follow-up of unexplained clinical signs and symptoms are recommended to minimize false negative results. CLINICAL HISTORY Date of Last Menstrual Period: Not Provided Menstrual History: Unknown Contraceptive History: Other: NEXPLANON Other Clinical Conditions: Screening Pap SPECIMEN SOURCE A: PAP SMEAR (SUREPATH) CE Patient Name: CHELSEA PRUETT : 1995 (Age: 26) Sex: F Institution: [facility] Location: [facility] Date of Collection: 09/26/2021 Date of Reported: 09/30/2021 11:28 Results to: Marina Mccann MD Marina Mccann MD CYTOLOGY ORDERABLES Final Res ult SEE NARRATIVE from Last 3 Months or Most Recently Relevant to Health Maintenance Insurance [facility] Member Subscriber Plan / Payer (Ef fective 2021-Present) Name:Chelsea Pruett Relation to Subscriber:Self Name:Chelsea Pruett Payer ID:Not on file Type:PPO Address: [address] [employer] Member Subscriber Plan / Payer (Ef fective 2021-Present) Name:Chelsea Pruett Relation to Subscriber:Self Name:Chelsea Pruett Payer ID:Not on file Type:PPO Address: [address] [employer] PPO [employer] Member Subscriber Plan / Payer (Ef fective 2021-) Name:Chelsea Pruett Relation to Subscriber:Self Name:Chelsea Pruett Payer ID:Not on file Type:PPO Address: [address] Member Subscriber Plan / Payer (Ef fective 2021-Present) Name:Chelsea Pruett Relation to Subscriber:Self Name:Chelsea Pruett Payer ID:Not on file Type:PPO Address: [address] [employer] [facility] Member Subscriber Plan / Payer (Ef fective 2021-Present) Name:Chelsea Pruett Relation to Subscriber:Self Name:Chelsea Pruett Payer ID:Not on file Type:PPO Address: [address] [employer] [facility] Member Subscriber Plan / Payer (Ef fective 2021-) Name:Chelsea Pruett Relation to Subscriber:Self Name:Chelsea Pruett Payer ID:Not on file Type:PPO Address: [address] [employer] [place] [address] PPO [employer] Member Subscriber Plan / Payer (Ef fective 2021-Present) Name:Chelsea Pruett Relation to Subscriber:Self Name:Chelsea Pruett Payer ID:Not on file Type:PPO Address: [address] [employer] Advance Directives For more information, please contact: [phone] (9AM - 5PM Norma/[facility], Sunday-Sunday) Documents on File Type Date Recorded Patient Maintenance Machinist Expl anation Healthcare Proxy 03/30/2022 4:50 PM * Full Code (Latest Code Status on File) Date Activated Date Inactivated Comments 12/16/2023 9:31 AM Question Answer Comments Code Status Confirmed With: Patient * Full Code Date Activated Date Inactivated Comments 12/15/2023 5:52 PM 12/16/2023 9:31 AM Question Answer Comments Code Status Confirmed With: Patient * Full Code Date Activated Date Inactivated Comments 03/22/2022 9:05 PM 12/15/2023 5:52 PM Question Answer Comments Code Status Confirmed With: Patient Care Teams Stoker Erector And Servicer Relationship Specialty Start Date End Date Chantel Hagan MD [address] [place] [address] PCP - General Internal Medicine 03/20/22 Additional Source Comments The information contained in this document represents components of the legal health record. It is not the complete legal health record.[facility]
--- OUTSIDE RECORDS SUMMARY | 2025-04-01 20:13 | XMS_ITS | Encounter Summary ---
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 [place] [address] [place] [address] Vera Stewart MD, PhD [address] [place] [address] 02/10/2026 10:10 AM EDT Office Visit [facility] Rheumatology [address] [place] [address] Evonne Mckeon MD, MPH [address] [facility], [address] [place] [address] [email or web address] documented as of this encounter Visit Diagnoses Not on filedocumented in this encounter Care Teams Manufacturing Lead Relationship Specialty Start Date End Date Chantel Hagan MD [address] [place] [id number] PCP - General Internal Medicine 03/20/22 documented as of this encounter Additional Source Comments The information contained in this document represents components of the legal health record. It is not the complete legal health record.[facility]
--- OUTSIDE RECORDS SUMMARY | 2025-04-01 20:13 | XMS_ITS | Encounter Summary ---
Author Organization [facility] Address [address] [place] [phone] Phone Care Team Providers Care Director Of Therapy Services Name Role Phone Chantel Hagan MD Primary Care Provid er Reason for Referral * MRI/CAT Scan - Closed Specialty Diagnoses / Procedures Referred By Yamini mendoza Referred To Contact Radiology Diagnoses Median arcuate ligament syndrome Procedures CT Angio 3D Reconstruction Abdomen CHG 3D RENDERING W/INTERP&POSTPROC DIFF WORK STATION Makr Dang MD [address] [place] [phone] Phone: tel: fax: mailto:[email or web address] Referral ID Status Reason Start Date Expiration Date Visits Re quested Visits Authorized [id number] Closed 11/21/2024 01/01/2025 1 1 Encounter Details Date Type Department Care Team (Late st Contact Info) Description 11/21/2024 Ancillary Orders [facility] [address] [place] [address] Mark Dang MD [address] [place] [id number] [email or web address] Median arcuate ligament syndrome (Primary Dx) Social History Tobacco Use Types Packs/Day Years [...] 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[employer] [employer] Not on file Not on file Not on file documented as of this encounter Plan of Treatment Upcoming Encounters Date Type Department Care Team (Late st Contact Info) Description 04/14/2025 2:00 PM EST Office Visit [facility] Main [place] [address] [place] [address] Vera Stewart MD, PhD [address] [place] [phone] [email or web address] 02/10/2026 10:10 AM EDT Office Visit [facility] Rheumatology [address] [place] [address] Evonne Mckeon MD, MPH [address] [facility], [address] [place] [address] [email or web address] documented as of this encounter Results * CT Angio 3D Reconstruction Abdomen (11/21/2024 10:17 AM EDT) Anatomical Region Laterality Modality Abdomen Computed Tomogra phy 11/21/2024 3:22 PM EDT Impressions 11/21/2024 4:02 PM EDT * Stable postoperative findings of radiographically ligament release with patent aorto splenic bypass graft. No evidence of complication. ATTESTATION: Johan Borrego, as teaching physician have reviewed the images, if any, for this patient's exam, and if necessary, have edited the report originally created by Karin Koo. Narrative 11/21/2024 4:[address] ANGIO ABDOMEN/PELVIS WITH CONTRAST, CT ANGIO 3D RECONSTRUCTION ABDOMEN Referring clinician's provided indication for this examination in Epic: *Other Anomalies Or Syndromes; MALS Review of the Electronic Medical Record reveals an additional history of:aorta splenic artery bypass and median arcuate ligament release performed in March 2022 TECHNIQUE: Multidector-row CTA of the abdomen and pelvis was performed after administration of intravenous contrast using tailored dose modulation techniques. Images were reconstructed in the axial, coronal, and sagittal planes, including angiographic image post-processing. COMPARISON: CT ANGIO ABDOMEN/PELVIS WITH CONTRAST FINDINGS: VASCULAR: Aorta: No aortic rupture, aneurysm, dissection, intramural hematoma, wall thickening or perivascular inflammation. Celiac axis: Stable postoperative findings of median arcuate ligament release with patent aorto splenic bypass graft. Superior mesenteric artery: Normal. No aneurysm, stenosis, dissection or occlusion. Right renal artery: Two right renal arteries. Mild luminal irregularity/beaded appearance of the lower right renal artery. Left renal artery: Normal. No aneurysm, stenosis, dissection or occlusion. Inferior mesenteric artery: Normal. No aneurysm, stenosis, dissection or occlusion. Right common iliac: Normal. No aneurysm, stenosis, dissection or occlusion. Right external iliac: Normal. No aneurysm, stenosis, dissection or occlusion. Left common iliac: Normal. No aneurysm, stenosis, dissection or occlusion. Left external iliac: Normal. No aneurysm, stenosis, dissection or occlusion. VEINS: Circumaortic left renal vein. Severe compression of the the aortic left renal vein at the aorta mesenteric angle (12:104). Normal size gonadal vein. NONVASCULAR: Lower Chest: Clear lung bases and no effusions. Liver: Normal. No focal lesions. Biliary: Normal. No biliary ductal dilatation. Spleen: Normal. No splenomegaly. Pancreas: Normal. No ductal dilatation, peripancreatic fluid, or stranding. Adrenal Glands: Normal. No nodules. Kidneys/Ureters: Normal. No stones or hydronephrosis. Bowel: Normal. No distention or wall thickening. Peritoneum/Retroperitoneum: Normal. No masses, pneumoperitoneum, or fluid. Lymph Nodes: Normal, no lymphadenopathy. Pelvic Organs/Bladder: Urinary bladder is partially distended. Bones/Soft Tissues: No destructive osseous lesions. Postsurgical changes in the upper midline anterior abdominal wall. Procedure Note Rodolfo Salinas MD - 11/21/2024 CT ANGIO ABDOMEN/PELVIS WITH CONTRAST, CT ANGIO 3D RECONSTRUCTIONABDOMEN Referring clinician's provided indication for this examination in Epic:*Other Anomalies Or Syndromes; MALS Review of the Electronic Medical Record reveals an additional historyof:aorta splenic artery bypass and median arcuate ligament releaseperformed in March 2022 TECHNIQUE: Multidector-row CTA of the abdomen and pelvis was performedafter administration of intravenous contrast using tailored dosemodulation techniques. Images were reconstructed in the axial, coronal,and sagittal planes, including angiographic image post-processing. COMPARISON: CT ANGIO ABDOMEN/PELVIS WITH CONTRAST FINDINGS: VASCULAR: Aorta: No aortic rupture, aneurysm, dissection, intramural hematoma, wallthickening or perivascular inflammation. Celiac axis: Stable postoperative findings of median arcuate ligamentrelease with patent aorto splenic bypass graft. Superior mesenteric artery: Normal. No aneurysm, stenosis, dissection orocclusion. Right renal artery: Two right renal arteries. Mild luminalirregularity/beaded appearance of the lower right renal artery. Left renal artery: Normal. No aneurysm, stenosis, dissection orocclusion. Inferior mesenteric artery: Normal. No aneurysm, stenosis, dissection orocclusion. Right common iliac: Normal. No aneurysm, stenosis, dissection orocclusion. Right external iliac: Normal. No aneurysm, stenosis, dissection orocclusion. Left common iliac: Normal. No aneurysm, stenosis, dissection orocclusion. Left external iliac: Normal. No aneurysm, stenosis, dissection orocclusion. VEINS: Circumaortic left renal vein. Severe compression of the the aorticleft renal vein at the aorta mesenteric angle (12:104). Normal sizegonadal vein. NONVASCULAR: Lower Chest: Clear lung bases and no effusions. Liver: Normal. No focal lesions. Biliary: Normal. No biliary ductal dilatation. Spleen: Normal. No splenomegaly. Pancreas: Normal. No ductal dilatation, peripancreatic fluid, orstranding. Adrenal Glands: Normal. No nodules. Kidneys/Ureters: Normal. No stones or hydronephrosis. Bowel: Normal. No distention or wall thickening. Peritoneum/Retroperitoneum: Normal. No masses, pneumoperitoneum, orfluid. Lymph Nodes: Normal, no lymphadenopathy. Pelvic Organs/Bladder: Urinary bladder is partially distended. Bones/Soft Tissues: No destructive osseous lesions. Postsurgical changesin the upper midline anterior abdominal wall. IMPRESSION: * Stable postoperative findings of radiographically ligament release withpatent aorto splenic bypass graft. No evidence of complication. ATTESTATION: I, Johan Steigner, as teaching physician have reviewed theimages, if any, for this patient's exam, and if necessary, have edited thereport originally created by Karin Koo. 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 It is not the complete legal health record.[facility]
--- OUTSIDE RECORDS SUMMARY | 2025-04-01 20:13 | XMS_ITS | Encounter Summary ---
Author Organization [facility] Address [address] [place] [phone] Phone Care Team Providers Care Instructional Consultant Name Role Phone Chantel Hagan MD Primary Care Provid er Encounter Details Date Type Department Care Team (Late st Contact Info) Description 03/22/[address] [facility] Periop [address] [place] [address] Social History Tobacco Use Types Packs/Day Years [...] PM EST documented as of this encounter Functional Status * Calculated C-SSRS Risk Score (Lifetime/Recent) Answer Date of Assessment Author No Risk Indicated 03/22/2022 9:00 PM Lisa Castaneda RN * [place] Suicide Severity Rating Scale (Screener/Recent Self-Report) Question Answer Date of Assessment Author 1. Wish to be (Past 1 Month) No 03/22/2022 9:00 PM Lisa Wilson RN 2. Non-Specific Active Suicidal Thoughts (Past 1 Month) No 03/22/2022 9:00 PM EDT Lisa Anguiano RN 6. Suicidal Behavior (Lifetime) No 03/22/2022 9:00 PM EDT Lisa Anguiano RN documented as of this encounter Plan of Treatment Upcoming Encounters Date Type Department Care Team (Late st Contact Info) Description 04/14/2025 2:00 PM EST Office Visit [facility] Main [place] [address] [place] [address] Vera Stewart MD, PhD [address] [place] [address] [email or web address] 02/10/2026 10:10 AM EDT Office Visit [facility] Rheumatology [address] [place] [address] Evonne Mckeon MD, MPH [address] [facility], [address] [place] [address] [email or web address] documented as of this encounter Visit Diagnoses Not on filedocumented in this encounter Care Teams Instructional Consultant Relationship Specialty Start Date End Date Chatnel Hagan MD [address] [place] [address] PCP - General Internal Medicine 03/20/22 documented as of this encounter Additional Source Comments The information contained in this document represents components of the legal health record. It is not the complete legal health record.[facility]
--- OUTSIDE RECORDS SUMMARY | 2025-04-01 20:13 | XMS_ITS | Encounter Summary ---
Author Organization [facility] Address [address] [place] [phone] Phone Care Team Providers Care Lawyer Name Role Phone Chantel Hagan MD Primary Care Provid er Encounter Details Date Type Department Care Team (Late st Contact Info) Description 06/26/2022 Procedure [facility] [address] [place] [address] Social History Tobacco Use Types Packs/Day Years [...] Description 04/14/2025 2:00 PM EST Office Visit [facility] Main [place] [address] [place] [address] Vera Stewart MD, PhD [address] [facility] [address] [place] [address] 02/10/2026 10:10 AM EDT Office Visit [facility] Rheumatology [address] [place] [address] Evonne Mckeon MD, MPH [address] [facility], [address] [place] [address] [email or web address] documented as of this encounter Visit Diagnoses Not on filedocumented in this encounter Care Teams Lawyer Relationship Specialty Start Date End Date Chantel Hagan MD [address] [place] [phone] PCP - General Internal Medicine 03/20/22 documented as of this encounter Additional Source Comments The information contained in this document represents components of the legal health record. It is not the complete legal health record.[facility]
--- OUTSIDE RECORDS SUMMARY | 2025-04-01 20:13 | XMS_ITS | Encounter Summary ---
Author Organization [facility] Address [address] [place] [phone] Phone Care Team Providers Care Insurance Actuary Name Role Phone Chantel Hagan MD Primary Care Provid er Encounter Details Date Type Department Care Team (Late st Contact Info) Description 05/16/2022 Procedure Pass [facility] [address] [place] [address] Social History Tobacco Use Types Packs/Day Years [...] Description 04/14/2025 2:00 PM EST Office Visit [facility] Main [place] [address] [place] [address] Vera Stewart MD, PhD [address] [facility] [address] [place] [address] 02/10/2026 10:10 AM EDT [facility] Rhe[facility] [address] [place] [address] Evonne Mckeon MD, MPH 22 [facility], [address] [place] [address] [email or web address] documented as of this encounter Visit Diagnoses Not on filedocumented in this encounter Care Teams Insurance Actuary Relationship Specialty Start Date End Date Chantel Hagan MD [address] [place] [phone] PCP - General Internal Medicine 03/20/22 documented as of this encounter Additional Source Comments The information contained in this document represents components of the legal health record. It is not the complete legal health record.[facility]
== END 2025-04-01 17:16 | disposition home or self-care (01) ==
LOC: HO.HMCH 16:28
PROVIDERS: PCP Internal Medicine; Visit Provider Student in an Organized Health Care Education/Training Program
DX: G43.909 Migraine, unspecified, not intractable, without status migrainosus (principal)